=== PATIENT | female | born 1965 | race Caucasian/White ===

== ENCOUNTER → 2016-09-16 | Outpatient (CLI) | payer BC ==
--- NOTE | 2016-09-16 12:36 | MR ---
EXAMINATION TYPE: MR lumbar spine wo con DATE OF EXAM: 09/16/2016 12:26 PM COMPARISON: NONE HISTORY: Back pain TECHNIQUE: Multiplanar, multisequence images of the lumbar spine were acquired. L1-L2: Normal disc appearance without desiccation. No herniation, protrusion or disc bulging. No ca nal stenosis is present. Foramina are patent bilaterally. L2-L3: Normal disc appearance without desiccation. No herniation, protrusion or disc bulging. No ca nal stenosis is present. Foramina are patent bilaterally. L3-L4: Normal disc appearance without desiccation. No herniation, protrusion or disc bulging. No ca nal stenosis is present. Foramina are patent bilaterally. L4-L5: There is mild disc desiccation noted. No significant disc bulge herniation or protrusion. Fora khai are patent bilaterally. L5-S1: There is mild disc desiccation. Posterior central disc bulge with small annular tear. No evide nce of paulie herniation. No evidence for central stenosis or foraminal encroachment. Lumbar segments are intact. No paraspinal masses are identified. Conus medullaris has a normal appe arance. IMPRESSION: Mild disc desiccation and disc bulging as discussed above.
== END | disposition home or self-care (01) ==
LOC: RADMRIMAIN 11:49
PROVIDERS: ATTEND Nurse Practitioner Acute Care
DX: M51.27 Other intervertebral disc displacement, lumbosacral region (principal)
CPT/HCPCS: 72148

== ENCOUNTER → 2017-08-02 | Outpatient (CLI) | payer BC ==
--- NOTE | 2017-08-04 07:54 | MM ---
Reason for exam: screening (asymptomatic). Last mammogram was performed 1 year and 2 months ago. History: Patient is postmenopausal and is nulliparous. Excisional biopsy of the left breast, October 15, 2007. Benign US left CoreBiopsy of the left breast, January 11, 2006. Benign excisional biopsy of the left breast, December 03, 1997. Benign core biopsy of the left breast, November 12, 1997. Benign stereotactic core biopsy of the left breast, November 12, 1997. Benign excisional biopsy of the right breast. Physical Findings: A clinical breast exam by your physician is recommended on an annual basis and results should be correlated with mammographic findings. MG Screening Mammo w CAD Bilateral CC and MLO view(s) were taken. Prior study comparison: May 20, 2016, bilateral MG screening mammo w CAD. April 04, 2014, bilateral MG screening mammo w CAD. September 09, 2011, bilateral digital screening mammo w/CAD. The breast tissue is heterogeneously dense. This may lower the sensitivity of mammography. There is a 1.2cm oval circumscribed isodense mass not clearly seen previously possible cyst. ASSESSMENT: Incomplete: need additional imaging evaluation, BI-RAD 0 RECOMMENDATION: Ultrasound of the right breast. (9-3 o'clock). [facility] will attempt to contact patient to return for ultrasound.
== END | disposition home or self-care (01) ==
LOC: RADMAMWWP 13:07
PROVIDERS: ATTEND Family Medicine
DX: Z12.31 Encounter for screening mammogram for malignant neoplasm of breast (principal)
CPT/HCPCS: 77067

== ENCOUNTER → 2017-10-06 | Outpatient (CLI) | payer BC ==
--- NOTE | 2017-10-09 07:37 | USB ---
Reason for exam: additional evaluation requested from abnormal screening. History: Patient is postmenopausal and is nulliparous. Excisional biopsy of the left breast, October 15, 2007. Benign US left CoreBiopsy of the left breast, January 11, 2006. Benign excisional biopsy of the left breast, December 03, 1997. Benign core biopsy of the left breast, November 12, 1997. Benign stereotactic core biopsy of the left breast, November 12, 1997. Benign excisional biopsy of the right breast. Physical Findings: Nurse did not find any significant physical abnormalities on exam. US Breast Workup Limited RT Right breast ultrasound demonstrates no cystic or solid lesion seen. These results were verbally communicated with the patient and result sheet given to the patient on 10/06/17. ASSESSMENT: Negative, BI-RAD 1 RECOMMENDATION: Return to routine screening mammogram schedule for both breasts.
== END | disposition home or self-care (01) ==
LOC: RADUSWWP 14:15
PROVIDERS: ATTEND Family Medicine
DX: R92.8 Other abnormal and inconclusive findings on diagnostic imaging of breast (principal)

== ENCOUNTER → 2018-08-24 | Outpatient (CLI) | payer OTHER ==
--- NOTE | 2018-08-27 09:54 | MM ---
Reason for exam: screening (asymptomatic). Last mammogram was performed 1 year and 1 month ago. History: Patient is postmenopausal and is nulliparous. Excisional biopsy of the left breast, October 15, 2007. Benign US left CoreBiopsy of the left breast, January 11, 2006. Benign excisional biopsy of the left breast, December 03, 1997. Benign core biopsy of the left breast, November 12, 1997. Benign stereotactic core biopsy of the left breast, November 12, 1997. Benign excisional biopsy of the right breast. Physical Findings: A clinical breast exam by your physician is recommended on an annual basis and results should be correlated with mammographic findings. MG Screening Mammo w CAD Bilateral CC and MLO view(s) were taken. Prior study comparison: August 02, 2017, bilateral MG screening mammo w CAD. May 20, 2016, bilateral MG screening mammo w CAD. There are scattered fibroglandular densities. There is no discrete abnormality. No significant changes when compared with prior studies. ASSESSMENT: Negative, BI-RAD 1 RECOMMENDATION: Routine screening mammogram of both breasts in 1 year.
== END | disposition home or self-care (01) ==
LOC: RADMAMWWP 08:09
PROVIDERS: ATTEND Family Medicine
DX: Z12.31 Encounter for screening mammogram for malignant neoplasm of breast (principal)
CPT/HCPCS: 77067

== ENCOUNTER → 2019-09-03 | Outpatient (CLI) | payer OTHER ==
--- NOTE | 2019-09-04 14:53 | MM ---
Reason for exam: screening (asymptomatic). Last mammogram was performed 1 year ago. History: Patient is postmenopausal and is nulliparous. Excisional biopsy of the left breast, October 15, 2007. Benign US left CoreBiopsy of the left breast, January 11, 2006. Benign excisional biopsy of the left breast, December 03, 1997. Benign core biopsy of the left breast, November 12, 1997. Benign stereotactic core biopsy of the left breast, November 12, 1997. Benign excisional biopsy of the right breast. Took hormonal contraceptives for 25 years. Physical Findings: A clinical breast exam by your physician is recommended on an annual basis and results should be correlated with mammographic findings. MG Screening Mammo w CAD Bilateral CC and MLO view(s) were taken. Prior study comparison: August 24, 2018, bilateral MG screening mammo w CAD. August 02, 2017, bilateral MG screening mammo w CAD. Developing asymmetry right breast. This finding is changed when compared with previous exams. ASSESSMENT: Incomplete: need additional imaging evaluation, BI-RAD 0 RECOMMENDATION: Special view mammogram of the right breast. If lesion persists on supplemental views, image directed ultrasound is recommended. [facility] will attempt to contact patient to return for supplemental views and ultrasound if indicated.
== END | disposition home or self-care (01) ==
LOC: RADMAMWWP 13:12
PROVIDERS: ATTEND Family Medicine
DX: Z12.31 Encounter for screening mammogram for malignant neoplasm of breast (principal)
CPT/HCPCS: 77067

== ENCOUNTER → 2019-09-18 | Outpatient (CLI) | payer OTHER ==
--- NOTE | 2019-09-19 08:20 | MM ---
Reason for exam: additional evaluation requested from abnormal screening. Last mammogram was performed less than 1 month ago. History: Patient is postmenopausal and is nulliparous. Excisional biopsy of the left breast, October 15, 2007. Benign US left CoreBiopsy of the left breast, January 11, 2006. Benign excisional biopsy of the left breast, December 03, 1997. Benign core biopsy of the left breast, November 12, 1997. Benign stereotactic core biopsy of the left breast, November 12, 1997. Benign excisional biopsy of the right breast. Took hormonal contraceptives for 5 years. Physical Findings: Nurse did not find any significant physical abnormalities on exam. MG Work Up Mamm w CAD RT Spot compression CC, spot compression MLO, and ML view(s) were taken of the right breast. Prior study comparison: September 03, 2019, bilateral MG screening mammo w CAD. August 24, 2018, bilateral MG screening mammo w CAD. The breast tissue is heterogeneously dense. This may lower the sensitivity of mammography. Right focal asymmetry 4.5-5cm from nipple persists. Ultrasound will be done. These results were verbally communicated with the patient and result sheet given to the patient on 09/18/19. ASSESSMENT: Incomplete: need additional imaging evaluation, BI-RAD 0 RECOMMENDATION: Ultrasound of the right breast. (upper outer quadrant)
--- NOTE | 2019-09-19 08:22 | USB ---
Reason for exam: additional evaluation requested from abnormal screening. History: Patient is postmenopausal and is nulliparous. Excisional biopsy of the left breast, October 15, 2007. Benign US left CoreBiopsy of the left breast, January 11, 2006. Benign excisional biopsy of the left breast, December 03, 1997. Benign core biopsy of the left breast, November 12, 1997. Benign stereotactic core biopsy of the left breast, November 12, 1997. Benign excisional biopsy of the right breast. Took hormonal contraceptives for 5 years. US Breast Workup Limited RT Right limited breast ultrasound including focal area of concern, retroareolar and axilla demonstrates no cystic or solid lesion seen. No suspicious sonographic correlate. These results were verbally communicated with the patient and result sheet given to the patient on 09/18/19. ASSESSMENT: Probably benign, BI-RAD 3 RECOMMENDATION: Follow-up diagnostic mammogram of the right breast in 6 months.
== END | disposition home or self-care (01) ==
LOC: RADMAMWWP 14:07
PROVIDERS: ATTEND Family Medicine
DX: R92.8 Other abnormal and inconclusive findings on diagnostic imaging of breast (principal)
CPT/HCPCS: 77065

== ENCOUNTER → 2020-04-03 | Outpatient (CLI) | payer OTHER ==
--- NOTE | 2020-04-03 10:54 | MM ---
Reason for exam: follow-up at short interval from prior study. Last mammogram was performed 6 months ago. History: Patient is postmenopausal and is nulliparous. Excisional biopsy of the left breast, October 15, 2007. Benign US left CoreBiopsy of the left breast, January 11, 2006. Benign excisional biopsy of the left breast, December 03, 1997. Benign core biopsy of the left breast, November 12, 1997. Benign stereotactic core biopsy of the left breast, November 12, 1997. Benign excisional biopsy of the right breast. Took hormonal contraceptives for 5 years. Physical Findings: Nurse did not find any significant physical abnormalities on exam. MG Diagnostic Mammo RT w CAD CC and MLO view(s) were taken of the right breast. Prior study comparison: September 18, 2019, right breast MG work up mamm w CAD RT. September 03, 2019, bilateral MG screening mammo w CAD. The breast tissue is heterogeneously dense. This may lower the sensitivity of mammography. No persistent density. These results were verbally communicated with the patient and result sheet given to the patient on 04/03/20. ASSESSMENT: Benign, BI-RAD 2 RECOMMENDATION: Return to routine screening mammogram schedule for both breasts. Back on schedule.
== END | disposition home or self-care (01) ==
LOC: RADMAMWWP 10:04
PROVIDERS: ATTEND Family Medicine
DX: R92.8 Other abnormal and inconclusive findings on diagnostic imaging of breast (principal)
CPT/HCPCS: 77065

== ENCOUNTER → 2020-10-16 | Outpatient (CLI) | payer OTHER ==
--- NOTE | 2020-10-19 10:46 | MM ---
Reason for exam: screening (asymptomatic). Last mammogram was performed 6 months ago. History: Patient is postmenopausal and is nulliparous. Excisional biopsy of the left breast, October 15, 2007. Benign US left CoreBiopsy of the left breast, January 11, 2006. Benign excisional biopsy of the left breast, December 03, 1997. Benign core biopsy of the left breast, November 12, 1997. Benign stereotactic core biopsy of the left breast, November 12, 1997. Benign excisional biopsy of the right breast. Took hormonal contraceptives for 5 years. Physical Findings: A clinical breast exam by your physician is recommended on an annual basis and results should be correlated with mammographic findings. MG 3D Screening Mammo W/Cad Bilateral CC and MLO view(s) were taken. Prior study comparison: April 03, 2020, right breast MG diagnostic mammo RT w CAD. September 18, 2019, right breast MG work up mamm w CAD RT. The breast tissue is heterogeneously dense. This may lower the sensitivity of mammography. There is no discrete abnormality. No significant changes when compared with prior studies. ASSESSMENT: Negative, BI-RAD 1 RECOMMENDATION: Routine screening mammogram of both breasts in 1 year.
== END | disposition home or self-care (01) ==
LOC: RADMAMWWP 11:23
PROVIDERS: ATTEND Family Medicine
DX: Z12.31 Encounter for screening mammogram for malignant neoplasm of breast (principal); Z78.0 Asymptomatic menopausal state
CPT/HCPCS: 77063; 77067

== ENCOUNTER 2020-11-19 13:12 | Observation (INO) | payer OTHER ==
--- NOTE | 2020-11-19 13:40 | ED ---
General Adult HPI - General Chief complaint: GI Bleed Stated complaint: Abn Labs Time Seen by Provider: 11/19/20 13:39 Source: patient, RN notes reviewed Mode of arrival: ambulatory Limitations: no limitations - History of Present Illness Initial comments: Patient is a pleasant 55-year-old female presenting to the emergency department with concerns for abnormal labs. Patient states she did have black stool around a month ago followed by a couple of episodes of bright red blood. Patient has not had any since that time. No abdominal pain. No vomiting. Patient did have recent blood work by her primary care physician with concerns with increased white blood cell count and decreased red blood cell count. No fevers. Patient states there is some mild fatigue. - Related Data Home Medications Medication Instructions Recorded Confirmed Atenolol [Tenormin] 50 mg PO DAILY 11/19/20 11/19/20 Atorvastatin [Lipitor] 10 mg PO HS 11/19/20 11/19/20 Brimonidine Tartrate [Lumify] 1 drop RIGHT EYE DAILY 11/19/20 11/19/20 Carboxymethylcellulose Sodium 1 drop RIGHT EYE DAILY PRN 11/19/20 11/19/20 [Refresh Tears] Cetirizine HCl [Zyrtec] 10 mg PO DAILY 11/19/20 11/19/20 Cyclobenzaprine [Flexeril] 10 mg PO DAILY PRN 11/19/20 11/19/20 DULoxetine HCL [Cymbalta] 60 mg PO DAILY 11/19/20 11/19/20 HYDROcodone/APAP 5-325MG [[place] 1 tab PO DAILY 11/19/20 11/19/20 5-325] Losartan Potassium 100 mg PO DAILY 11/19/20 11/19/20 Meloxicam [Mobic] 15 mg PO DAILY 11/19/20 11/19/20 Prednisolone Acetate/Pf 1 drop RIGHT EYE DAILY 11/19/20 11/19/20 [Prednisolone Acet 1% Eye Drop] Sodium Chloride 5% Ophth Oint 1 applic RIGHT EYE DAILY 11/19/20 11/19/20 [Zen 128] amLODIPine [Norvasc] 5 mg PO DAILY 11/19/20 11/19/20 cycloSPORINE [Restasis] 1 drop RIGHT EYE HS 11/19/20 11/19/20 Allergies Allergy/AdvReac Type Severity Reaction Status Date / Time Penicillins Allergy Rash/Hives Verified 11/19/20 14:26 Sulfa (Sulfonamide Allergy Unknown Verified 11/19/20 14:26 Antibiotics) Childhood Review of Systems ROS Statement: Those systems with pertinent positive or pertinent negative responses have been documented in the HPI. ROS Other: All systems not noted in ROS Statement are negative. Constitutional: Denies: fever Eyes: Denies: eye pain ENT: Denies: ear pain Respiratory: Denies: cough Cardiovascular: Denies: chest pain Endocrine: Reports: fatigue Gastrointestinal: Reports: as per HPI. Denies: abdominal pain, vomiting Genitourinary: Denies: dysuria Musculoskeletal: Denies: back pain Skin: Denies: lesions Neurological: Denies: weakness Past Medical History Past Medical History: Hyperlipidemia, Hypertension Additional Past Medical History / Comment(s): chronic back pain, glaucoma History of Any Multi-Drug Resistant Organisms: None Reported Past Surgical History: Hysterectomy Additional Past Surgical History / Comment(s): eye stent Past Psychological History: No Psychological Hx Reported Smoking Status: Current every day smoker Past Alcohol Use History: Occasional Past Drug Use History: None Reported General Exam Limitations: no limitations General appearance: alert, in no apparent distress Head exam: Present: normocephalic Eye exam: Present: normal appearance Neck exam: Present: normal inspection Respiratory exam: Present: normal lung sounds bilaterally Cardiovascular Exam: Present: regular rate, normal rhythm GI/Abdominal exam: Present: soft. Absent: distended, tenderness Rectal exam: Present: normal inspection. Absent: bloody stool Extremities exam: Present: normal inspection Neurological exam: Present: alert Psychiatric exam: Present: normal affect, normal mood Skin exam: Present: normal color Course Vital Signs 11/19/20 11/19/20 13:21 14:02 Temperature 98.2 F Pulse Rate 98 69 Respiratory 18 20 Rate Blood Pressure 145/87 115/70 O2 Sat by Pulse 100 99 Oximetry EKG Findings - EKG Comments: EKG Findings:: Normal sinus rhythm with rate of 96. RI 138. QRS 92. QT 340. QTc 429. Normal axis. Incomplete right bundle-branch block. No acute ST change. Medical Decision Making - Medical Decision Making Patient reevaluated and updated. Case was discussed with Dr. Chiu, covering for Dr. Fritz Pope, who will admit. CT of chest and abdomen will be obtained. - Lab Data Result diagrams: 11/19/20 13:55 11/19/20 13:55 Lab Results 11/19/20 11/19/20 11/19/20 Range/Units 13:55 13:55 13:55 WBC 19.5 H (3.8-10.6) k/uL RBC 2.97 L (3.80-5.40) m/uL Hgb 9.1 L (11.4-16.0) gm/dL Hct 28.1 L (34.0-46.0) % MCV 94.4 D (80.0-100.0) fL MCH 30.7 (25.0-35.0) pg MCHC 32.6 (31.0-37.0) g/dL RDW 14.5 (11.5-15.5) % Plt Count 932 H (150-450) k/uL MPV 6.5 Neutrophils % 78 % Lymphocytes % 9 % Monocytes % 9 % Eosinophils % 1 % Basophils % 0 % Neutrophils # 15.3 H (1.3-7.7) k/uL Lymphocytes # 1.8 (1.0-4.8) k/uL Monocytes # 1.8 H (0-1.0) k/uL Eosinophils # 0.3 (0-0.7) k/uL Basophils # 0.1 (0-0.2) k/uL PT 9.6 (9.0-12.0) sec INR 0.9 (<1.2) APTT 24.8 (22.0-30.0) sec Sodium 133 L (137-145) mmol/L Potassium 4.3 (3.5-5.1) mmol/L Chloride 96 L (98-107) mmol/L Carbon Dioxide 27 (22-30) mmol/L Anion Gap 10 mmol/L BUN 11 (7-17) mg/dL Creatinine 0.66 (0.52-1.04) mg/dL Est GFR (CKD-EPI)AfAm >90 (>60 ml/min/1.73 sqM) Est GFR (CKD-EPI)NonAf >90 (>60 ml/min/1.73 sqM) Glucose 102 H (74-99) mg/dL Calcium 9.6 (8.4-10.2) mg/dL Total Bilirubin 0.2 (0.2-1.3) mg/dL AST 22 (14-36) U/L ALT 14 (4-34) U/L Alkaline Phosphatase 108 (38-126) U/L Troponin I (0.000-0.034) ng/mL Total Protein 7.0 (6.3-8.2) g/dL Albumin 3.8 (3.5-5.0) g/dL Stool Occult Blood (Negative) 11/19/20 11/19/20 Range/Units 13:55 14:00 WBC (3.8-10.6) k/uL RBC (3.80-5.40) m/uL Hgb (11.4-16.0) gm/dL Hct (34.0-46.0) % MCV (80.0-100.0) fL MCH (25.0-35.0) pg MCHC (31.0-37.0) g/dL RDW (11.5-15.5) % Plt Count (150-450) k/uL MPV Neutrophils % % Lymphocytes % % Monocytes % % Eosinophils % % Basophils % % Neutrophils # (1.3-7.7) k/uL Lymphocytes # (1.0-4.8) k/uL Monocytes # (0-1.0) k/uL Eosinophils # (0-0.7) k/uL Basophils # (0-0.2) k/uL PT (9.0-12.0) sec INR (<1.2) APTT (22.0-30.0) sec Sodium (137-145) mmol/L Potassium (3.5-5.1) mmol/L Chloride (98-107) mmol/L Carbon Dioxide (22-30) mmol/L Anion Gap mmol/L BUN (7-17) mg/dL Creatinine (0.52-1.04) mg/dL Est GFR (CKD-EPI)AfAm (>60 ml/min/1.73 sqM) Est GFR (CKD-EPI)NonAf (>60 ml/min/1.73 sqM) Glucose (74-99) mg/dL Calcium (8.4-10.2) mg/dL Total Bilirubin (0.2-1.3) mg/dL AST (14-36) U/L ALT (4-34) U/L Alkaline Phosphatase (38-126) U/L Troponin I <0.012 (0.000-0.034) ng/mL Total Protein (6.3-8.2) g/dL Albumin (3.5-5.0) g/dL Stool Occult Blood Positive H (Negative) - Radiology Data Radiology results: image reviewed (Suprahilar masslike opacity on the left. Possible alveolar hemorrhage or infiltrate.) Disposition Clinical Impression: Lower gastrointestinal hemorrhage Disposition: ADMITTED IP TO THIS HOSP Is patient prescribed a controlled substance at d/c from ED?: No Referrals: Julius Pandey DO [Primary Care Provider] - 1-2 days Decision Time: 15:09
[2020-11-19] MEDS ORDERED: PANTOPRAZOLE 40 MG/10 ML VIAL IVP STA (13:50)
[2020-11-19 14:05] LABS: Basophils # (A) 0.1 k/uL (0-0.2); Basophils % (A) 0 %; Eosinophils # (A) 0.3 k/uL (0-0.7); Eosinophils % (A) 1 %; HCT 28.1 % (34.0-46.0); HGB 9.1 gm/dL (11.4-16.0); Lymphocytes # (A) 1.8 k/uL (1.0-4.8); Lymphocytes % (A) 9 %; MCH 30.7 pg (25.0-35.0); MCHC 32.6 g/dL (31.0-37.0); Mean Platelet Volume 6.5; Monocytes # (A) 1.8 k/uL (0-1.0); Monocytes % (A) 9 %; Neutrophils # (A) 15.3 k/uL (1.3-7.7); Neutrophils % (A) 78 %; Platelet Count 932 k/uL (150-450); RBC 2.97 m/uL (3.80-5.40); RDW 14.5 % (11.5-15.5); WBC 19.5 k/uL (3.8-10.6)
[2020-11-19 14:15] LABS: MCV 94.4 fL (80.0-100.0)
--- NOTE | 2020-11-19 14:23 | XR ---
EXAMINATION TYPE: XR chest 1V portable DATE OF EXAM: 11/19/2020 COMPARISON: Chest x-ray December 08, 2009 HISTORY: Leukocytosis. Blood loss. TECHNIQUE: Single AP portable frontal upright view of the chest is obtained. FINDINGS: There is mass like opacity left suprahilar level on background chronic parenchymal change. Right lung is clear. The cardiac silhouette size remains within normal limits. The osseous struct ures are intact. IMPRESSION: New suprahilar masslike opacity suspicious for focal infiltrate and/or less likely alveo lar hemorrhage given patient's history. Progress study advised to rule out underlying nodule.
[2020-11-19 14:24] LABS: INR 0.9 (<1.2); Partial Thromboplastin Time 24.8 sec (22.0-30.0); Prothrombin Time 9.6 sec (9.0-12.0)
[2020-11-19 14:51] LABS: ALT 14 U/L (4-34); AST 22 U/L (14-36); African American GFR (CKD) >90 (>60 ml/min/1.73 sqM); Albumin 3.8 g/dL (3.5-5.0); Alkaline Phosphatase 108 U/L (38-126); Anion Gap 10 mmol/L; Blood Urea Nitrogen 11 mg/dL (7-17); Calcium 9.6 mg/dL (8.4-10.2); Carbon Dioxide 27 mmol/L (22-30); Chloride 96 mmol/L (98-107); Glucose 102 mg/dL (74-99); Non-African American GFR(CKD) >90 (>60 ml/min/1.73 sqM); Potassium 4.3 mmol/L (3.5-5.1); Sodium 133 mmol/L (137-145); Total Bilirubin 0.2 mg/dL (0.2-1.3)
[2020-11-19] MEDS ORDERED: NALOXONE 0.4 MG/ML 1 ML VIAL IV PRN (15:10)
[2020-11-19] MEDS ORDERED: IOPAMIDOL CONTRAST (ORAL USE) VIAL PO PRN (15:10)
[2020-11-19] MEDS ORDERED: SODIUM CHLORIDE 0.9% 1,000 ML IV SCH (15:15)
--- NOTE | 2020-11-19 19:02 | CT ---
EXAMINATION TYPE: CT ChestAbdPelvis w con DATE OF EXAM: 11/19/2020 COMPARISON: None HISTORY: Abdominal pain with blood in stool. CT DLP: 860.3 mGycm Automated exposure control for dose reduction was used. CONTRAST: Performed with IV Contrast, patient injected with 100 mL of Isovue 300. Images obtained from the thoracic inlet to the floor the pelvis with IV contrast. There is 6 x 4 cm area of masslike consolidation in the anterior left upper lobe. There is central lo w attenuation with air bubble. This could be necrotic tumor or lung abscess. The other lung urban ar e clear. Heart size is normal. There is no mediastinal adenopathy. There are no hilar masses. Thoraci c aorta is intact. There is no aneurysm or dissection. Liver spleen stomach pancreas gallbladder appear intact. The bile ducts are not dilated. There are sm all calcified gallstones. There is no adrenal mass. Kidneys show satisfactory contrast opacification. There is no hydronephrosi s. Delayed images show normal renal excretion. There is no retroperitoneal adenopathy. Bladder disten ds smoothly. There is no inguinal hernia. There is no free fluid in the pelvis. There are some sigmoi d diverticula. There is no diverticulitis. There is normal contrast opacification of the small bowel with oral contrast. There is no mesenteric edema. There is no ascites or free air. There is no bowel obstruction. Appendix is not seen. There is no sign of thickened appendix. There are multiple sigmoid diverticula. There are scattered diverticula in the large bowel. I see no sign of diverticulitis. Thoracic and lumbar vertebra appear intact. There is no compression fracture. Sternum is intact. The bony pelvis is intact. Proximal femurs and hip joints are intact. There is no hip dysplasia. IMPRESSION: Masslike infiltrate in the anterior left upper lobe adjacent to the chest wall. I would consider poss ibilities of lung abscess and necrotic tumor. Follow-up recommended. There is some colonic diverticulosis without diverticulitis. Cholelithiasis.
[2020-11-19] MEDS: cycloSPORINE 0.05% OPHTH 0.4 ML DROPERETTE RIGHT EYE SCH (20:32)
[2020-11-19] MEDS: NICOTINE 21MG/24HR PATCH TRANSDERM SCH (20:51)
[2020-11-19] MEDS: ATORVASTATIN 10 MG TAB PO SCH (20:51)
[2020-11-19] MEDS ORDERED: ACETAMINOPHEN TAB 325 MG TAB PO PRN (22:40)
[2020-11-19] MEDS: SODIUM CHLORIDE 0.9% 1,000 ML IV SCH (22:57)
[2020-11-19 23:25] LABS: Appearance,Urine Cloudy (Clear); Bacteria,Urine Rare /hpf; Bilirubin,Urine Negative (Negative); Blood,Urine Negative (Negative); Color,Urine Colorless; Glucose,Urine (UA) Negative (Negative); Hyaline Casts,Urine 1 /lpf (0-2); Ketones,Urine Negative (Negative); Leukocyte Esterase,Urine Large (Negative); Nitrite,Urine Negative (Negative); PH, Urine 7.5 (5.0-8.0); Protein,Urine Negative (Negative); RBC,Urine 2 /hpf (0-5); Specific Gravity,Urine 1.011 (1.001-1.035); Squamous Epithelial Cell,Urine 1 /hpf (0-4); Urobilinogen,Urine <2.0 mg/dL (<2.0); WBC,Urine 139 /hpf (0-5)
[2020-11-19] MEDS: LEVOFLOXACIN 750MG-D5W PMX 750 MG in DEXTROSE/WATER 1 150ML.BAG IVPB SCH (23:30)
--- NOTE | 2020-11-19 23:37 | P.HPIM ---
History of Present Illness H&P Date: 11/19/20 Chief Complaint: Abnormal lab value Patient is a 55-year-old female with a known history of hypertension, hyperlipidemia, chronic back pain, glaucoma and currently everyday smoker and alcohol use 1-2 beers on daily basis was sent to ER from Dr. Zafar office due to concern for GI bleed and elevated WBC count. Patient states that she did have dark-colored stool about a month ago followed by episodes of bright red blood per rectum. Patient does have history of hemorrhoids and had colonoscopy several years ago. Denies any dark-colored stool, hematemesis during the last few days. Otherwise patient does drink on a daily basis. Patient was sent to ER for evaluation. Denies any dysuria or hematuria. Laboratory data showed WBC 19.5 hemoglobin 9.1 and platelets 932 T-max was 100.3. Currently oxygenating at 99% on room air. Neutrophils 15.3 and monocytes 1.8 Liver enzymes are not elevated Sodium 133 potassium 4.3 chloride 96 and FOBT positive. Coronavirus PCR not detected Chest x-ray showed new suprahilar masslike opacity suspicious for focal infiltrate and less likely alveolar hemorrhage given patient's history. Progressive study advised rule out underlying nodule. EKG showed normal sinus rhythm CT of the abdomen pelvis and chest was done showed masslike infiltrate in the anterior left upper lobe adjacent to the chest wall. I would consider possibili ties of lung abscess and necrotic tumor. Follow-up recommended. There is some colonic diverticulosis without diverticulitis. Cholelithiasis. Review of Systems Constitutional: Patient does have fever, no chills . No generalized weakness or weight loss. Abdomen: Patient denied nausea vomiting and diarrhea and abdominal pain. dark colored stools. Cardiovascular: Patient denies any chest pain or short of breath no palpitations. Respiratory: patient denied any cough or sputum production. No shortness of breath Neurologic: Patient denied any numbness or tingling headache. Musculoskeletal: Patient denies any complaints of joint swelling or deformity. Skin: Negative Psychiatric: Negative Endocrine: No heat or cold intolerance. No recent weight gain. Genitourinary: No dysuria or hematuria. All other 14 point ROS negative except the above Past Medical History Past Medical History: Hyperlipidemia, Hypertension Additional Past Medical History / Comment(s): chronic back pain, glaucoma History of Any Multi-Drug Resistant Organisms: None Reported Past Surgical History: Hysterectomy Additional Past Surgical History / Comment(s): eye stent Past Psychological History: No Psychological Hx Reported Smoking Status: Current every day smoker Past Alcohol Use History: Occasional Past Drug Use History: None Reported Medications and Allergies Home Medications Medication Instructions Recorded Confirmed Type Atenolol [Tenormin] 50 mg PO DAILY 11/19/20 11/19/20 History Atorvastatin [Lipitor] 10 mg PO HS 11/19/20 11/19/20 History Brimonidine Tartrate [Lumify] 1 drop RIGHT EYE DAILY 11/19/20 11/19/20 History Carboxymethylcellulose Sodium 1 drop RIGHT EYE DAILY PRN 11/19/20 11/19/20 History [Refresh Tears] Cetirizine HCl [Zyrtec] 10 mg PO DAILY 11/19/20 11/19/20 History Cyclobenzaprine [Flexeril] 10 mg PO DAILY PRN 11/19/20 11/19/20 History DULoxetine HCL [Cymbalta] 60 mg PO DAILY 11/19/20 11/19/20 History HYDROcodone/APAP 5-325MG [[place] 1 tab PO DAILY 11/19/20 11/19/20 History 5-325] Losartan Potassium 100 mg PO DAILY 11/19/20 11/19/20 History Meloxicam [Mobic] 15 mg PO DAILY 11/19/20 11/19/20 History Prednisolone Acetate/Pf 1 drop RIGHT EYE DAILY 11/19/20 11/19/20 History [Prednisolone Acet 1% Eye Drop] Sodium Chloride 5% Ophth Oint 1 applic RIGHT EYE DAILY 11/19/20 11/19/20 History [Zen 128] amLODIPine [Norvasc] 5 mg PO DAILY 11/19/20 11/19/20 History cycloSPORINE [Restasis] 1 drop RIGHT EYE HS 11/19/20 11/19/20 History Allergies Allergy/AdvReac Type Severity Reaction Status Date / Time Penicillins Allergy Rash/Hives Verified 11/19/20 14:26 Sulfa (Sulfonamide Allergy Unknown Verified 11/19/20 14:26 Antibiotics) Childhood Physical Exam Vitals: Vital Signs Temp Pulse Pulse Resp BP BP Pulse Ox 11/19/20 20:35 100.0 F H 90 148/84 97 11/19/20 18:15 100.3 F H 92 16 129/78 100 11/19/20 17:34 98 F 75 18 124/80 96 11/19/20 15:00 79 18 121/65 99 11/19/20 14:02 69 20 115/70 99 11/19/20 13:21 98.2 F 98 18 145/87 100 Intake and Output 11/19/20 11/19/20 11/19/20 06:59 14:59 22:59 Intake Total 200 Balance 200 Intake: Oral 200 Other: # Voids 2 Weight 65.771 kg 65.771 kg PHYSICAL EXAMINATION: Patient is lying in the bed comfortably, no acute distress, awake alert and oriented.. HEENT: Normocephalic. Neck is supple. Pupils reactive. Nostrils clear. Oral cavity is moist. Ears reveal no drainage. Neck reveals no JVD, carotid bruits, or thyromegaly. CHEST EXAMINATION: Trachea is central. Symmetrical expansion. Lung urban clear to auscultation and percussion. CARDIAC: Normal S1, S2 with no gallops. No murmurs ABDOMEN: Soft. Bowel sounds normal. No organomegaly. No abdominal bruits. Extremities: reveal no edema. No clubbing or cyanosis Neurologically awake, alert, oriented x3 with well-coordinated movements. No focal deficits noted Skin: No rash or skin lesions. Psychiatric: Coperative. Nonsuicidal Musculoskeletal: No joint swelling or deformity. Normal range of motion. Results CBC & Chem 7: 11/19/20 13:55 11/19/20 13:55 Labs: Abnormal Lab Results - Last 24 Hours (Table) 11/19/20 11/19/20 11/19/20 Range/Units 13:55 13:55 14:00 WBC 19.5 H (3.8-10.6) k/uL RBC 2.97 L (3.80-5.40) m/uL Hgb 9.1 L (11.4-16.0) gm/dL Hct 28.1 L (34.0-46.0) % Plt Count 932 H (150-450) k/uL Neutrophils # 15.3 H (1.3-7.7) k/uL Monocytes # 1.8 H (0-1.0) k/uL Sodium 133 L (137-145) mmol/L Chloride 96 L (98-107) mmol/L Glucose 102 H (74-99) mg/dL Stool Occult Blood Positive H (Negative) Thrombosis Risk Factor Assmnt - DVT/VTE Prophylaxis DVT/VTE Prophylaxis: Pharmacologic Prophylaxis ordered - Choose All That Apply Any of the Below Risk Factors Present?: Yes Each Factor Represents 1 point: Age 41-60 years Other Risk Factors: No Thrombosis Risk Factor Assessment Total Risk Factor Score: 1 Thrombosis Risk Factor Assessment Level: Low Risk Assessment and Plan Assessment: Left upper lobe masslike infiltrate with possible lung abscess versus necrotic tumor. Sepsis secondary to above Acute blood loss anemia. Likely due to GI bleed with dark stools. History of hemorrhoids Daily alcohol use 1-2 beers. Ongoing nicotine addiction Hypertension Hyperlipidemia DVT prophylaxis with SCDs due to GI bleed. Plan: Patient will be continued on IV hydration with normal saline at 100 cc per hour. Monitor H&H. Continue with PPI. Patient will be started on antibiotics in the form of Levaquin and Flagyl. Patient is allergic to penicillins. Follow-up blood cultures and Tylenol as needed for fever. Pulmonary, ID and GI was consulted. Clear liquid diet and follow-up closely. Further recommendations based on clinical course. Smoking cessation and alcohol abstinence has been counseled extensively. Monitor for alcohol withdrawal symptoms. Time with Patient: Greater than 30
[2020-11-20] MEDS: metroNIDAZOLE-NS PMX 500 MG in SALINE 1 100ML.BAG IVPB SCH ×4 (01:21→23:15)
[2020-11-20] MEDS: PANTOPRAZOLE 40 MG/10 ML VIAL IV SCH (08:09)
[2020-11-20] MEDS: NICOTINE 21MG/24HR PATCH TRANSDERM SCH (08:10)
[2020-11-20] MEDS: THIAMINE 100 MG TAB PO SCH (08:10)
[2020-11-20 10:15] LABS: Basophils # (A) 0.09 X 10*3/uL (0.00-0.10); Basophils % (A) 0.5 %; Eosinophils # (A) 0.18 X 10*3/uL (0.04-0.35); Eosinophils % (A) 0.9 %; HCT 27.8 % (37.2-46.3); HGB 8.8 g/dL (12.0-15.0); Lymphocytes # (A) 1.56 X 10*3/uL (0.90-5.00); Lymphocytes % (A) 7.9 %; MCH 30.8 pg (27.0-32.0); MCHC 31.7 g/dL (32.0-37.0); MCV 97.2 fL (80.0-97.0); Mean Platelet Volume 8.3 fL (9.5-12.2); Monocytes # (A) 2.43 X 10*3/uL (0.20-1.00); Monocytes % (A) 12.2 %; Neutrophils # (A) 15.46 X 10*3/uL (1.80-7.70); Neutrophils % (A) 77.9 %; Platelet Count 831 X 10*3/uL (140-440); RBC 2.86 X 10*6/uL (4.10-5.20); RDW 14.6 % (11.5-14.5); WBC 19.84 X 10*3/uL (4.50-10.00)
[2020-11-20] MEDS ORDERED: CYCLOBENZAPRINE 10 MG TAB PO PRN (10:24)
[2020-11-20 10:30] LABS: African American GFR (CKD) 126.3 (60.0-200.0); Anion Gap 9.8 mmol/L (4.00-12.00); Calcium 8.9 mg/dL (8.7-10.3); Carbon Dioxide 23.2 mmol/L (21.6-31.8); Potassium 4.7 mmol/L (3.5-5.5)
[2020-11-20] MEDS: amLODIPine 5 MG TAB PO SCH (10:43)
[2020-11-20] MEDS: atenoloL 50 MG TAB PO SCH (10:43)
[2020-11-20] MEDS: DULoxetine HCL 60 MG CAPSULE.DR PO SCH (10:43)
[2020-11-20] MEDS: LORATADINE 10 MG TAB PO SCH (10:43)
[2020-11-20] MEDS: ARTIFICIAL TEARS-HYPROMELLOSE DROPS 15 ML BTL RIGHT EYE PRN (10:44)
[2020-11-20] MEDS: BRIMONIDINE TARTRATE 0.2% DROPS 5 ML BTL RIGHT EYE SCH (10:45)
[2020-11-20] MEDS: prednisoLONE ACETATE 1% OPHTH DROPS 5 ML BTL RIGHT EYE SCH (10:45)
[2020-11-20] MEDS: SODIUM CHLORIDE 5% OPHTH OINT 3.5 GM TUBE RIGHT EYE SCH (10:46)
--- NOTE | 2020-11-20 11:40 | P.CONS ---
History of Present Illness - Reason for Consult Consult date: 11/20/20 Lower GI bleed Requesting physician: Thor Chiu - Chief Complaint Anemia, abnormal labs - History of Present Illness This is a pleasant 55-year-old white female who was told by her primary care provider to come to the emergency room for further evaluation of anemia, with a positive fecal occult blood test. She has a past medical history including hyperlipidemia, hypertension, musculoskeletal pain, and smoker for over 25 years. The patient states she was recently diagnosed with anemia approximately one month ago while having blood work done at her primary care provider. She states she had a couple bowel movements mixed with dark blood, and then followed by a couple weeks later with bright red blood per rectum and mixed in stool. Patient states she does have a history of external hemorrhoids for which she had a hemorrhoidectomy in the . She denies any history of peptic ulcer disease or gastric reflux disease. She does take Mobic daily for chronic pain related to neck and back pain. Last month her hemoglobin was as low as 7.8. She states that she had recent outpatient anemia workup. Denies any abdominal pain, nausea, or vomiting. Denies any difficulty with swallowing. Today's labs WBC 19.84, hemoglobin 8.8, hematocrit 27.8, platelets 831,000, INR 0.9, positive fecal occult blood. As part of her workup she had a chest x-ray which showed new suprahilar masslike opacity suspicious for focal infiltrate and or less likely alveolar hemorrhage given patient's history. Progress study advised to rule out underlying nodule. CT of chest/abdomen/pelvis impression states masslike infiltrate in the anterior left upper lobe adjacent to the chest wall. I would consider possibilities of lung abscess and necrotic tumor. Follow-up recommended. There is some colonic diverticulosis without diverticulitis. Cholelithiasis. Review of Systems REVIEW OF SYSTEMS: CARDIOPULMONARY: No chest pain or shortness of breath. Gastrointestinal: No abdominal pain. No nausea or vomiting. No hematemesis, coffee-ground emesis. No rectal bleeding, or melena. Denies constipation. GENITOURINARY: No dysuria or hematuria. MUSCULOSKELETAL: Reports normal range of motion. Reports positive neck and back pain SKIN: No rashes. No jaundice. ENDOCRINE: Unremarkable. PSYCHIATRIC: Unremarkable. NEUROLOGY: No change in mental status. Denies dizziness, headache. ENT: Vision unremarkable. CONSTITUTIONAL: No recent weight loss. No fever, chills, night sweats. Past Medical History Past Medical History: Hyperlipidemia, Hypertension Additional Past Medical History / Comment(s): chronic back pain, glaucoma History of Any Multi-Drug Resistant Organisms: None Reported Past Surgical History: Hysterectomy Additional Past Surgical History / Comment(s): eye stent Past Psychological History: No Psychological Hx Reported Smoking Status: Current every day smoker Past Alcohol Use History: Occasional Past Drug Use History: None Reported Medications and Allergies Home Medications Medication Instructions Recorded Confirmed Type Atenolol [Tenormin] 50 mg PO DAILY 11/19/20 11/19/20 History Atorvastatin [Lipitor] 10 mg PO HS 11/19/20 11/19/20 History Brimonidine Tartrate [Lumify] 1 drop RIGHT EYE DAILY 11/19/20 11/19/20 History Carboxymethylcellulose Sodium 1 drop RIGHT EYE DAILY PRN 11/19/20 11/19/20 History [Refresh Tears] Cetirizine HCl [Zyrtec] 10 mg PO DAILY 11/19/20 11/19/20 History Cyclobenzaprine [Flexeril] 10 mg PO DAILY PRN 11/19/20 11/19/20 History DULoxetine HCL [Cymbalta] 60 mg PO DAILY 11/19/20 11/19/20 History HYDROcodone/APAP 5-325MG [[place] 1 tab PO DAILY 11/19/20 11/19/20 History 5-325] Losartan Potassium 100 mg PO DAILY 11/19/20 11/19/20 History Meloxicam [Mobic] 15 mg PO DAILY 11/19/20 11/19/20 History Prednisolone Acetate/Pf 1 drop RIGHT EYE DAILY 11/19/20 11/19/20 History [Prednisolone Acet 1% Eye Drop] Sodium Chloride 5% Ophth Oint 1 applic RIGHT EYE DAILY 11/19/20 11/19/20 History [Zen 128] amLODIPine [Norvasc] 5 mg PO DAILY 11/19/20 11/19/20 History cycloSPORINE [Restasis] 1 drop RIGHT EYE HS 11/19/20 11/19/20 History Allergies Allergy/AdvReac Type Severity Reaction Status Date / Time Penicillins Allergy Rash/Hives Verified 11/19/20 14:26 Sulfa (Sulfonamide Allergy Unknown Verified 11/19/20 14:26 Antibiotics) Childhood Physical Exam Vitals: Vital Signs Temp Pulse Pulse Resp BP BP Pulse Ox 11/20/20 07:00 98.7 F 106 H 16 120/78 96 11/20/20 01:25 99.3 F 100 16 124/78 96 11/19/20 22:33 90 16 11/19/20 20:35 100.0 F H 90 148/84 97 11/19/20 18:15 100.3 F H 92 16 129/78 100 11/19/20 17:34 98 F 75 18 124/80 96 11/19/20 15:00 79 18 121/65 99 11/19/20 14:02 69 20 115/70 99 11/19/20 13:21 98.2 F 98 18 145/87 100 Intake and Output 11/19/20 11/20/20 11/20/20 22:59 06:59 14:59 Intake Total 200 180 Balance 200 180 Intake: Oral 200 180 Other: Voiding Method Toilet Toilet Toilet # Voids 2 3 Weight 65.771 kg General appearance: The patient is alert, oriented, appears in no acute distress. HET: Head is normocephalic and atraumatic. Oropharynx is clear without lesions. Neck: Supple without lymphadenopathy. Trachea midline. Heart: S1 S2. Regular rate and rhythm. Lungs: Clear to auscultation. Abdomen: Soft, nontender, nondistended with bowel sounds. No guarding or rigidity. Extremities: Normal skin color and turgor. No pedal edema. Neurological: No focal deficits. Alert and oriented 3.. Results CBC & Chem 7: 11/20/20 04:50 11/20/20 04:50 Labs: Abnormal Lab Results - Last 24 Hours (Table) 11/19/20 11/19/20 11/19/20 Range/Units 13:55 13:55 14:00 WBC 19.5 H (3.8-10.6) k/uL RBC 2.97 L (3.80-5.40) m/uL Hgb 9.1 L (11.4-16.0) gm/dL Hct 28.1 L (34.0-46.0) % MCV (80.0-97.0) fL MCHC (32.0-37.0) g/dL RDW (11.5-14.5) % Plt Count 932 H (150-450) k/uL Plt Count Comment MPV (9.5-12.2) fL Immature Gran # (0.00-0.04) X 10*3/uL Neutrophils # 15.3 H (1.3-7.7) k/uL Monocytes # 1.8 H (0-1.0) k/uL Sodium 133 L (137-145) mmol/L Chloride 96 L (98-107) mmol/L BUN (9.0-27.0) mg/dL Creatinine (0.6-1.5) mg/dL Glucose 102 H (74-99) mg/dL Plasma Lactic Acid [place] (0.7-2.0) mmol/L Urine Appearance (Clear) Ur Leukocyte Esterase (Negative) Urine WBC (0-5) /hpf Urine Bacteria (None) /hpf Stool Occult Blood Positive H (Negative) 11/19/20 11/20/20 11/20/20 Range/Units 22:54 00:29 04:50 WBC 19.84 H (3.8-10.6) k/uL RBC 2.86 L (3.80-5.40) m/uL Hgb 8.8 L (11.4-16.0) gm/dL Hct 27.8 L (34.0-46.0) % MCV 97.2 H (80.0-97.0) fL MCHC 31.7 L (32.0-37.0) g/dL RDW 14.6 H (11.5-14.5) % Plt Count 831 H (150-450) k/uL Plt Count Comment INCREASED A MPV 8.3 L (9.5-12.2) fL Immature Gran # 0.12 H (0.00-0.04) X 10*3/uL Neutrophils # 15.46 H (1.3-7.7) k/uL Monocytes # 2.43 H (0-1.0) k/uL Sodium (137-145) mmol/L Chloride (98-107) mmol/L BUN (9.0-27.0) mg/dL Creatinine (0.6-1.5) mg/dL Glucose (74-99) mg/dL Plasma Lactic Acid [place] 0.6 L (0.7-2.0) mmol/L Urine Appearance Cloudy H (Clear) Ur Leukocyte Esterase Large H (Negative) Urine WBC 139 H (0-5) /hpf Urine Bacteria Rare H (None) /hpf Stool Occult Blood (Negative) 11/20/20 Range/Units 04:50 WBC (3.8-10.6) k/uL RBC (3.80-5.40) m/uL Hgb (11.4-16.0) gm/dL Hct (34.0-46.0) % MCV (80.0-97.0) fL MCHC (32.0-37.0) g/dL RDW (11.5-14.5) % Plt Count (150-450) k/uL Plt Count Comment MPV (9.5-12.2) fL Immature Gran # (0.00-0.04) X 10*3/uL Neutrophils # (1.3-7.7) k/uL Monocytes # (0-1.0) k/uL Sodium 134 L (137-145) mmol/L Chloride (98-107) mmol/L BUN 6.0 L (9.0-27.0) mg/dL Creatinine 0.5 L (0.6-1.5) mg/dL Glucose (74-99) mg/dL Plasma Lactic Acid [place] (0.7-2.0) mmol/L Urine Appearance (Clear) Ur Leukocyte Esterase (Negative) Urine WBC (0-5) /hpf Urine Bacteria (None) /hpf Stool Occult Blood (Negative) Microbiology - Last 24 Hours (Table) 11/19/20 22:54 Urine Culture - Preliminary Urine,Voided Comments: chest x-ray which showed new suprahilar masslike opacity suspicious for focal infiltrate and or less likely alveolar hemorrhage given patient's history. Progress study advised to rule out underlying nodule. CT of chest/abdomen/pelvis impression states masslike infiltrate in the anterior left upper lobe adjacent to the chest wall. I would consider possibilities of lung abscess and necrotic tumor. Follow-up recommended. There is some colonic diverticulosis without diverticulitis. Cholelithiasis. Assessment and Plan (1) Melena Narrative/Plan: This is a 55-year-old female who was told to come to the emergency department from her primary care provider after having a workup for anemia. According to the patient she had a positive FOBT in the outpatient setting along with anemia with reports of dark blood in her stool approximately one month ago followed by 2 weeks later having bright red blood per rectum and mixed in her stool. Patient has a history of long-term NSAID use with Modic for neck and back pain. She denies any history of peptic ulcer disease or acid reflux. She states she had a prior colonoscopy in the for hemorrhoids with hemorrhoidectomy. Denies any upper endoscopies. Have to consider the possibility of upper or lower GI blood loss. Possibility of gastritis, esophagitis, peptic ulcer disease as well as diverticular bleed, AVM, and neoplasm cannot be excluded. Plan for upper and lower endoscopy. Current Visit: Yes Status: Acute Code(s): K92.1 - MELENA SNOMED Code(s): 9041608 (2) Anemia Narrative/Plan: Anemia workup ordered Current Visit: Yes Status: Acute Code(s): D64.9 - ANEMIA, UNSPECIFIED SNOMED Code(s): 285391354 Plan: 1. Clear liquid diet, nothing by mouth after midnight 2. Protonix 40 mg twice a day 3. Bowel prep to start this evening 4. Plan for EGD and colonoscopy tomorrow, obtain consent 5. Continue IV antibiotics as ordered 6. Await recommendations from pulmonology and infectious disease 7. Smoking cessation 8. Avoid NSAIDs Thank you for this consultation, we will continue to follow Dr. Kennedy Phillips I agree with the dictator's note, documented as a scribe by Shruti Zhu.
--- NOTE | 2020-11-20 13:04 | P.CNPUL ---
History of Present Illness Consult date: 11/20/20 Reason for consult: abnormal CXR/CT History of present illness: 55-year-old female patient hospitalized for workup of anemia and GI bleed. Chest x-ray showed a new suprahilar masslike opacity and for that reason a computed tomography scan of the chest was done and the CAT scan of the chest revealed a 6 x 4 cm masslike consolidation in the anterior segment of the left upper lobe. No other lung urban are essentially clear. No mediastinal l ymphadenopathy. No hilar lymphadenopathy. CAT scan of the abdomen showed essentially no issues with her liver spleen or stomach or pancreas or gallbladder. There was evidence of some sigmoid diverticulum without diverticulitis. The patient has checked negative for COVID-19. Influenza screen was negative. Hemoglobin at time of admission was 9.1. Platelet counts are elevated at 932. Electrolytes are all within normal limits. Coagulation profile is also within normal limits. She clinically is asymptomatic. She denies having any respiratory difficulties. No coffee no sputum production. No chest tightness. No wheezing. No pleurisy. She has had a minor trauma to her left anterior chest area few weeks back without any significant complications or bruising. No history of any TB exposure. She is a chronic smoker in she smoked about 1 pack of cigarettes a day and she's been smoking since the age of 20. She is 55 and she is working and the [employer]. Review of Systems Eyes: denies as per HPI, denies blurred vision, denies bulging eye, denies decreased vision, denies diplopia, denies discharge, denies dry eye, denies irritation, denies itching, denies pain, denies photophobia, denies loss of peripheral vision, denies loss of vision, denies tunnel vision/blind spots Ears: deny: decreased hearing, ear discharge, earache, tinnitus Ears, nose, mouth and throat: Reports as per HPI Breasts: absent: as per HPI, change in shape, gynecomastia, masses, nipple discharge, pain, skin changes, swelling Cardiovascular: Reports shortness of breath Respiratory: Reports cough Gastrointestinal: Reports as per HPI, Reports melena Genitourinary: Reports as per HPI Menstruation: Reports as per HPI Musculoskeletal: Reports as per HPI Musculoskeletal: absent: ankle pain, ankle stiffness, ankle swelling, as per HPI, elbow pain, elbow stiffness, elbow swelling, foot pain, foot stiffness, f oot swelling, hand pain, hand stiffness, hand swelling, hip pain, hip stiffness, hip swelling, knee pain, knee stiffness, knee swelling, shoulder pain, shoulder stiffness, shoulder swelling, wrist pain, wrist stiffness, wrist swelling Integumentary: Reports as per HPI Neurological: Reports as per HPI Psychiatric: Reports as per HPI Endocrine: Reports as per HPI Hematologic/Lymphatic: Reports as per HPI Allergic/Immunologic: Reports as per HPI Past Medical History Past Medical History: Hyperlipidemia, Hypertension Additional Past Medical History / Comment(s): chronic back pain, glaucoma History of Any Multi-Drug Resistant Organisms: None Reported Past Surgical History: Hysterectomy Additional Past Surgical History / Comment(s): eye stent Past Psychological History: No Psychological Hx Reported Smoking Status: Current every day smoker Past Alcohol Use History: Occasional Past Drug Use History: None Reported Medications and Allergies Home Medications Medication Instructions Recorded Confirmed Type Atenolol [Tenormin] 50 mg PO DAILY 11/19/20 11/19/20 History Atorvastatin [Lipitor] 10 mg PO HS 11/19/20 11/19/20 History Brimonidine Tartrate [Lumify] 1 drop RIGHT EYE DAILY 11/19/20 11/19/20 History Carboxymethylcellulose Sodium 1 drop RIGHT EYE DAILY PRN 11/19/20 11/19/20 History [Refresh Tears] Cetirizine HCl [Zyrtec] 10 mg PO DAILY 11/19/20 11/19/20 History Cyclobenzaprine [Flexeril] 10 mg PO DAILY PRN 11/19/20 11/19/20 History DULoxetine HCL [Cymbalta] 60 mg PO DAILY 11/19/20 11/19/20 History HYDROcodone/APAP 5-325MG [Atkins 1 tab PO DAILY 11/19/20 11/19/20 History 5-325] Losartan Potassium 100 mg PO DAILY 11/19/20 11/19/20 History Meloxicam [Mobic] 15 mg PO DAILY 11/19/20 11/19/20 History Prednisolone Acetate/Pf 1 drop RIGHT EYE DAILY 11/19/20 11/19/20 History [Prednisolone Acet 1% Eye Drop] Sodium Chloride 5% Ophth Oint 1 applic RIGHT EYE DAILY 11/19/20 11/19/20 History [Zen 128] amLODIPine [Norvasc] 5 mg PO DAILY 11/19/20 11/19/20 History cycloSPORINE [Restasis] 1 drop RIGHT EYE HS 11/19/20 11/19/20 History Allergies Allergy/AdvReac Type Severity Reaction Status Date / Time Penicillins Allergy Rash/Hives Verified 11/19/20 14:26 Sulfa (Sulfonamide Allergy Unknown Verified 11/19/20 14:26 Antibiotics) Childhood Physical Exam Vitals: Vital Signs Temp Pulse Pulse Resp BP BP Pulse Ox 11/20/20 07:00 98.7 F 106 H 16 120/78 96 11/20/20 01:25 99.3 F 100 16 124/78 96 11/19/20 22:33 90 16 11/19/20 20:35 100.0 F H 90 148/84 97 11/19/20 18:15 100.3 F H 92 16 129/78 100 11/19/20 17:34 98 F 75 18 124/80 96 11/19/20 15:00 79 18 121/65 99 11/19/20 14:02 69 20 115/70 99 11/19/20 13:21 98.2 F 98 18 145/87 100 Intake and Output 11/19/20 11/20/20 11/20/20 22:59 06:59 14:59 Intake Total 200 180 Balance 200 180 Intake: Oral 200 180 Other: Voiding Method Toilet Toilet Toilet # Voids 2 3 Weight 65.771 kg The patient appeared well nourished and normally developed. Vital signs as documented. Head exam is unremarkable. No scleral icterus or corneal arcus noted. Neck is without jugular venous distension, thyromegaly, or carotid brui ts. Carotid upstrokes are brisk bilaterally. Lungs are diminished breath sounds along with some scattered rhonchi and scattered expiratory wheezes. Cardiac exam reveals the PMI to be normally sized and situated. Rhythm is regular. First and second heart sounds normal. No murmurs, rubs or gallops. Abdominal exam reveals normal bowel sounds, no masses, no organomegaly and no aortic enlargement. Extr emities are nonedematous and both femoral and pedal pulses are normal.Examination of the skin revealed no evidence of significant rashes, suspicious appearing nevi or other concerning lesions. Results - Laboratory Findings CBC and BMP: 11/20/20 04:50 11/20/20 04:50 PT/INR, D-dimer PT 9.6 sec (9.0-12.0) 11/19/20 13:55 INR 0.9 (<1.2) 11/19/20 13:55 Abnormal lab findings: Abnormal Labs 11/19/20 11/19/20 11/19/20 13:55 13:55 14:00 WBC 19.5 H RBC 2.97 L Hgb 9.1 L Hct 28.1 L MCV MCHC RDW Plt Count 932 H Plt Count Comment MPV Immature Gran # Neutrophils # 15.3 H Monocytes # 1.8 H Sodium 133 L Chloride 96 L BUN Creatinine Glucose 102 H Plasma Lactic Acid Ceasar Urine Appearance Ur Leukocyte Esterase Urine WBC Urine Bacteria Stool Occult Blood Positive H 11/19/20 11/20/20 11/20/20 22:54 00:29 04:50 WBC 19.84 H RBC 2.86 L Hgb 8.8 L Hct 27.8 L MCV 97.2 H MCHC 31.7 L RDW 14.6 H Plt Count 831 H Plt Count Comment INCREASED A MPV 8.3 L Immature Gran # 0.12 H Neutrophils # 15.46 H Monocytes # 2.43 H Sodium Chloride BUN Creatinine Glucose Plasma Lactic Acid Ceasar 0.6 L Urine Appearance Cloudy H Ur Leukocyte Esterase Large H Urine WBC 139 H Urine Bacteria Rare H Stool Occult Blood 11/20/20 04:50 WBC RBC Hgb Hct MCV MCHC RDW Plt Count Plt Count Comment MPV Immature Gran # Neutrophils # Monocytes # Sodium 134 L Chloride BUN 6.0 L Creatinine 0.5 L Glucose Plasma Lactic Acid Ceasar Urine Appearance Ur Leukocyte Esterase Urine WBC Urine Bacteria Stool Occult Blood - Diagnostic Findings Chest x-ray: image reviewed CT scan - chest: image reviewed Assessment and Plan Plan: 1 left upper lobe mass, incidental finding, occupying the anterior segment of the left upper lobe, measuring 6 x 4 cm in size with some central necrosis, high likelihood for malignancy and needs further workup. Clinically asymptomatic 2 COPD 3 chronic anemia with a hemoglobin of 8.8 with a possibility of a upper GI bleed 4 leukocytosis/thrombocytosis with elevated platelet count. 5 smoker. 6 hyperlipidemia 7 hypertension Plan Complete the GI workup including EGD and colonoscopy Regarding the left upper lobe mass, the patient will need further diagnostics and the patient would benefit from a fine-needle aspirate the left upper lobe mass based on the location of this mass which is highly accessible for percutaneous biopsy. If nondiagnostic, a bronchoscopy will be indicated. Suspicion for malignancy is high. As for the FNA, this can be done either inpatient or outpatient depending on her length of stay for the GI workup.
--- NOTE | 2020-11-20 16:46 | P.CONS ---
History of Present Illness - Reason for Consult Consult date: 11/20/20 Lung abscess Requesting physician: Thor Chiu - Chief Complaint Elevated white count x one week - History of Present Illness Patient is a 55-year-old female who recently did have a 6 month physical with her primary care physician patient did have blood culture drawn and she was noticed to have elevated white count, CBC has been repeated 2 times and noted to have persistent elevated white count and the patient was advised to go to the hospital, patient on presentation to the hospital was afebrile however did have low-grade fever 100.3 subsequently patient did have white count of 19.5 with a repeat is 19.84 and did have thrombocytosis, patient did have a normal creatinine and liver enzymes, patient did have mildly positive UA, patient did have a chest x-ray with new suprahilar mass like opacity suspicious for focal infiltrate, subsequently have a CT of the chest abdominal pelvis, which did shows a mass like infiltrate in the anterior left upper lobe adjacent to the chest wall consider possibility of lung abscess or necrotic tumor patient also noticed to have a anemia, patient was started on Levaquin and Flagyl because of her penicillin ALLERGY infectious disease was consulted with concern for possible lung abscess, patient currently denies having any fever or any chills, the patient denies having any chest pain or shortness of breath patient did have minimal cough no significant sputum production, denies any nausea no vomiting no abdominal pain and no diarrhea did mention about a month ago she did have small amount of bleeding per rectum however subsequently resolved and patient did not be any attention to it GI has been consulted for further GI workup Review of Systems Positive point has been mentioned in the HPI rest of the systems are negative Past Medical History Past Medical History: Hyperlipidemia, Hypertension Additional Past Medical History / Comment(s): chronic back pain, glaucoma History of Any Multi-Drug Resistant Organisms: None Reported Past Surgical History: Hysterectomy Additional Past Surgical History / Comment(s): eye stent Past Psychological History: No Psychological Hx Reported Smoking Status: Current every day smoker Past Alcohol Use History: Occasional Past Drug Use History: None Reported Medications and Allergies Home Medications Medication Instructions Recorded Confirmed Type Atenolol [Tenormin] 50 mg PO DAILY 11/19/20 11/19/20 History Atorvastatin [Lipitor] 10 mg PO HS 11/19/20 11/19/20 History Brimonidine Tartrate [Lumify] 1 drop RIGHT EYE DAILY 11/19/20 11/19/20 History Carboxymethylcellulose Sodium 1 drop RIGHT EYE DAILY PRN 11/19/20 11/19/20 History [Refresh Tears] Cetirizine HCl [Zyrtec] 10 mg PO DAILY 11/19/20 11/19/20 History Cyclobenzaprine [Flexeril] 10 mg PO DAILY PRN 11/19/20 11/19/20 History DULoxetine HCL [Cymbalta] 60 mg PO DAILY 11/19/20 11/19/20 History HYDROcodone/APAP 5-325MG [Dawson 1 tab PO DAILY 11/19/20 11/19/20 History 5-325] Losartan Potassium 100 mg PO DAILY 11/19/20 11/19/20 History Meloxicam [Mobic] 15 mg PO DAILY 11/19/20 11/19/20 History Prednisolone Acetate/Pf 1 drop RIGHT EYE DAILY 11/19/20 11/19/20 History [Prednisolone Acet 1% Eye Drop] Sodium Chloride 5% Ophth Oint 1 applic RIGHT EYE DAILY 11/19/20 11/19/20 History [Zen 128] amLODIPine [Norvasc] 5 mg PO DAILY 11/19/20 11/19/20 History cycloSPORINE [Restasis] 1 drop RIGHT EYE HS 11/19/20 11/19/20 History Allergies Allergy/AdvReac Type Severity Reaction Status Date / Time Penicillins Allergy Rash/Hives Verified 11/19/20 14:26 Sulfa (Sulfonamide Allergy Unknown Verified 11/19/20 14:26 Antibiotics) Childhood Physical Exam Vitals: Vital Signs Temp Pulse Pulse Resp BP BP Pulse Ox 11/20/20 07:00 98.7 F 106 H 16 120/78 96 11/20/20 01:25 99.3 F 100 16 124/78 96 11/19/20 22:33 90 16 11/19/20 20:35 100.0 F H 90 148/84 97 11/19/20 18:15 100.3 F H 92 16 129/78 100 11/19/20 17:34 98 F 75 18 124/80 96 11/19/20 15:00 79 18 121/65 99 11/19/20 14:02 69 20 115/70 99 11/19/20 13:21 98.2 F 98 18 145/87 100 Intake and Output 11/19/20 11/20/20 11/20/20 22:59 06:59 14:59 Intake Total 200 180 Balance 200 180 Intake: Oral 200 180 Other: Voiding Method Toilet Toilet Toilet # Voids 2 3 Weight 65.771 kg GENERAL DESCRIPTION: Middle-aged male lying in bed, no distress. No tachypnea or accessory muscle of respiration use. HEENT: Shows Pallor , no scleral icterus. Oral mucous membrane is dry. No pharyngeal erythema or thrush NECK: Trachea central, no thyromegaly. LUNGS: Unlabored breathing. Clear to auscultation anteriorly. No wheeze or crackle. HEART: S1, S2, regular rate and rhythm. No loud murmur ABDOMEN: Soft, no tenderness , guarding or rigidity, no organomegaly EXTREMITIES: No edema of feet. SKIN: No rash, no masses palpable. NEUROLOGICAL: The patient is awake, alert, oriented x3, mood and affect normal. Results CBC & Chem 7: 11/20/20 04:50 11/20/20 04:50 Labs: Abnormal Lab Results - Last 24 Hours (Table) 11/19/20 11/19/20 11/19/20 Range/Units 13:55 13:55 14:00 WBC 19.5 H (3.8-10.6) k/uL RBC 2.97 L (3.80-5.40) m/uL Hgb 9.1 L (11.4-16.0) gm/dL Hct 28.1 L (34.0-46.0) % MCV (80.0-97.0) fL MCHC (32.0-37.0) g/dL RDW (11.5-14.5) % Plt Count 932 H (150-450) k/uL Plt Count Comment MPV (9.5-12.2) fL Immature Gran # (0.00-0.04) X 10*3/uL Neutrophils # 15.3 H (1.3-7.7) k/uL Monocytes # 1.8 H (0-1.0) k/uL Sodium 133 L (137-145) mmol/L Chloride 96 L (98-107) mmol/L BUN (9.0-27.0) mg/dL Creatinine (0.6-1.5) mg/dL Glucose 102 H (74-99) mg/dL Plasma Lactic Acid Ceasar (0.7-2.0) mmol/L Urine Appearance (Clear) Ur Leukocyte Esterase (Negative) Urine WBC (0-5) /hpf Urine Bacteria (None) /hpf Stool Occult Blood Positive H (Negative) 11/19/20 11/20/20 11/20/20 Range/Units 22:54 00:29 04:50 WBC 19.84 H (3.8-10.6) k/uL RBC 2.86 L (3.80-5.40) m/uL Hgb 8.8 L (11.4-16.0) gm/dL Hct 27.8 L (34.0-46.0) % MCV 97.2 H (80.0-97.0) fL MCHC 31.7 L (32.0-37.0) g/dL RDW 14.6 H (11.5-14.5) % Plt Count 831 H (150-450) k/uL Plt Count Comment INCREASED A MPV 8.3 L (9.5-12.2) fL Immature Gran # 0.12 H (0.00-0.04) X 10*3/uL Neutrophils # 15.46 H (1.3-7.7) k/uL Monocytes # 2.43 H (0-1.0) k/uL Sodium (137-145) mmol/L Chloride (98-107) mmol/L BUN (9.0-27.0) mg/dL Creatinine (0.6-1.5) mg/dL Glucose (74-99) mg/dL Plasma Lactic Acid Ceasar 0.6 L (0.7-2.0) mmol/L Urine Appearance Cloudy H (Clear) Ur Leukocyte Esterase Large H (Negative) Urine WBC 139 H (0-5) /hpf Urine Bacteria Rare H (None) /hpf Stool Occult Blood (Negative) 11/20/20 Range/Units 04:50 WBC (3.8-10.6) k/uL RBC (3.80-5.40) m/uL Hgb (11.4-16.0) gm/dL Hct (34.0-46.0) % MCV (80.0-97.0) fL MCHC (32.0-37.0) g/dL RDW (11.5-14.5) % Plt Count (150-450) k/uL Plt Count Comment MPV (9.5-12.2) fL Immature Gran # (0.00-0.04) X 10*3/uL Neutrophils # (1.3-7.7) k/uL Monocytes # (0-1.0) k/uL Sodium 134 L (137-145) mmol/L Chloride (98-107) mmol/L BUN 6.0 L (9.0-27.0) mg/dL Creatinine 0.5 L (0.6-1.5) mg/dL Glucose (74-99) mg/dL Plasma Lactic Acid Ceasar (0.7-2.0) mmol/L Urine Appearance (Clear) Ur Leukocyte Esterase (Negative) Urine WBC (0-5) /hpf Urine Bacteria (None) /hpf Stool Occult Blood (Negative) Microbiology - Last 24 Hours (Table) 11/19/20 22:54 Urine Culture - Preliminary Urine,Voided Assessment and Plan Assessment: 1- patient with abnormal chest x-ray followed by abnormal CT of the chest with concern for mass like opacity and possible necrotic tumor in this patient clinic ally not behaving as a lung abscess as the patient does not look toxic did have a low-grade fever, did have elevated white count which could be associated possible necrotic tumor as well as pneumonia 2-Patient with multiple antibiotic ALLERGIES that would limit the number of antibiotic safe to use (1) Leukocytosis Current Visit: Yes Status: Acute Code(s): D72.829 - ELEVATED WHITE BLOOD CELL COUNT, UNSPECIFIED SNOMED Code(s): 819232363 (2) Abnormal CT scan, chest Current Visit: Yes Status: Acute Code(s): R93.89 - ABNORMAL FINDINGS ON DX IMAGING OF OTH BODY STRUCTURES SNOMED Code(s): 71436357361166508 Plan: 1- await fine-needle aspiration of this area, in addition to histopathology fluid should be sent for culture 2-we will check a CRP pro calcitonin level 3-continue the Levaquin and Flagyl We will follow on clinical condition and cultures to further adjust medication if needed Thank you for this consultation will follow this patient with you
[2020-11-20] MEDS ORDERED: PEG 3350-NA SULF,BICARB,CL/KCL 4,000 ML BOTTLE PO ONE (17:00)
[2020-11-20] MEDS: SODIUM CHLORIDE 0.9% 1,000 ML IV SCH ×2 (19:37→19:38)
[2020-11-20] MEDS: cycloSPORINE 0.05% OPHTH 0.4 ML DROPERETTE RIGHT EYE SCH (21:04)
[2020-11-20] MEDS: ATORVASTATIN 10 MG TAB PO SCH (21:05)
[2020-11-20] MEDS: HYDROcodone/APAP 5-325MG 1 EACH TAB PO PRN (21:09)
[2020-11-20 22:23] LABS: Ferritin 40.2 ng/mL (10.0-291.0)
[2020-11-20 22:26] LABS: % Iron Saturation 2.34 (12.00-45.00)
[2020-11-20] MEDS: LEVOFLOXACIN 750MG-D5W PMX 750 MG in DEXTROSE/WATER 1 150ML.BAG IVPB SCH (23:15)
--- NOTE | 2020-11-20 23:31 | P.PN ---
Subjective Progress Note Date: 11/20/20 Patient is a 55-year-old female with a known history of hypertension, hyperlipidemia, chronic back pain, glaucoma and currently everyday smoker and alcohol use 1-2 beers on daily basis was sent to ER from Dr. Zafar office due to concern for GI bleed and elevated WBC count. Patient states that she did have dark-colored stool about a month ago followed by episodes of bright red blood per rectum. Patient does have history of hemorrhoids and had colonoscopy several years ago. Denies any dark-colored stool, hematemesis during the last few days. Otherwise patient does drink on a daily basis. Patient was sent to ER for evaluation. Denies any dysuria or hematuria. Laboratory data showed WBC 19.5 hemoglobin 9.1 and platelets 932 T-max was 100.3. Currently oxygenating at 99% on room air. Neutrophils 15.3 and monocytes 1.8 Liver enzymes are not elevated Sodium 133 potassium 4.3 chloride 96 and FOBT positive. Coronavirus PCR not detected Chest x-ray showed new suprahilar masslike opacity suspicious for focal infiltrate and less likely alveolar hemorrhage given patient's history. Progressive study advised rule out underlying nodule. EKG showed normal sinus rhythm CT of the abdomen pelvis and chest was done showed masslike infiltrate in the anterior left upper lobe adjacent to the chest wall. I would consider possibilities of lung abscess and necrotic tumor. Follow-up recommended. There is some colonic diverticulosis without diverticulitis. Cholelithiasis. 11/20/2020 Patient is currently resting in the bed comfortably. Denies any further episodes of dark-colored stool. No bowel event today. Patient is being continued on Protonix 40 mg twice daily. GI is planning for EGD tomorrow. Otherwise patient is being continued antibiotics in the form of Levaquin and Flagyl. ID and pulmonary has seen the patient. Pulmonary points fine-needle aspiration due to high suspicion for malignancy. Laboratory data showed WBC went up to 19.8, hemoglobin 8.8 and platelets 831 Sodium 134 potassium 4.7 BUN 16 creatinine 0.5 Iron level 7 and TIBC 299 ferritin 40.29% desaturation 2.34 Current medications reviewed. Objective - Vital Signs Vital signs: Vital Signs Temp 97.6 F 11/20/20 20:00 Pulse 80 11/20/20 20:00 Resp 18 11/20/20 20:00 BP 113/77 11/20/20 20:00 Pulse Ox 100 11/20/20 20:00 Intake & Output 11/20/20 11/20/20 11/21/20 06:59 18:59 06:59 Intake Total 180 Balance 180 Intake: Oral 180 Other: Voiding Method Toilet Toilet Toilet # Voids 3 1 3 - Exam PHYSICAL EXAMINATION: Patient is lying in the bed comfortably, no acute distress, awake alert and oriented.. HEENT: Normocephalic. Neck is supple. Pupils reactive. Nostrils clear. Oral cavity is moist. Ears reveal no drainage. Neck reveals no JVD, carotid bruits, or thyromegaly. CHEST EXAMINATION: Trachea is central. Symmetrical expansion. Lung urban clear to auscultation and percussion. CARDIAC: Normal S1, S2 with no gallops. No murmurs ABDOMEN: Soft. Bowel sounds normal. No organomegaly. No abdominal bruits. Extremities: reveal no edema. No clubbing or cyanosis Neurologically awake, alert, oriented x3 with well-coordinated movements. No focal deficits noted Skin: No rash or skin lesions. Psychiatric: Coperative. Nonsuicidal Musculoskeletal: No joint swelling or deformity. Normal range of motion. - Labs CBC & Chem 7: 11/20/20 04:50 11/20/20 04:50 Labs: Abnormal Lab Results - Last 24 Hours (Table) 11/19/20 11/20/20 11/20/20 Range/Units 22:54 00:29 04:50 WBC 19.84 H (4.50-10.00) X 10*3/uL RBC 2.86 L (4.10-5.20) X 10*6/uL Hgb 8.8 L (12.0-15.0) g/dL Hct 27.8 L (37.2-46.3) % MCV 97.2 H (80.0-97.0) fL MCHC 31.7 L (32.0-37.0) g/dL RDW 14.6 H (11.5-14.5) % Plt Count 831 H (140-440) X 10*3/uL Plt Count Comment INCREASED A MPV 8.3 L (9.5-12.2) fL Immature Gran # 0.12 H (0.00-0.04) X 10*3/uL Neutrophils # 15.46 H (1.80-7.70) X 10*3/uL Monocytes # 2.43 H (0.20-1.00) X 10*3/uL Sodium (135-145) mmol/L BUN (9.0-27.0) mg/dL Creatinine (0.6-1.5) mg/dL Plasma Lactic Acid Ceasar 0.6 L (0.7-2.0) mmol/L Iron (50-170) ug/dL % Saturation (12.00-45.00) Urine Appearance Cloudy H (Clear) Ur Leukocyte Esterase Large H (Negative) Urine WBC 139 H (0-5) /hpf Urine Bacteria Rare H (None) /hpf 11/20/20 11/20/20 Range/Units 04:50 04:50 WBC (4.50-10.00) X 10*3/uL RBC (4.10-5.20) X 10*6/uL Hgb (12.0-15.0) g/dL Hct (37.2-46.3) % MCV (80.0-97.0) fL MCHC (32.0-37.0) g/dL RDW (11.5-14.5) % Plt Count (140-440) X 10*3/uL Plt Count Comment MPV (9.5-12.2) fL Immature Gran # (0.00-0.04) X 10*3/uL Neutrophils # (1.80-7.70) X 10*3/uL Monocytes # (0.20-1.00) X 10*3/uL Sodium 134 L (135-145) mmol/L BUN 6.0 L (9.0-27.0) mg/dL Creatinine 0.5 L (0.6-1.5) mg/dL Plasma Lactic Acid Ceasar (0.7-2.0) mmol/L Iron 7 L (50-170) ug/dL % Saturation 2.34 L (12.00-45.00) Urine Appearance (Clear) Ur Leukocyte Esterase (Negative) Urine WBC (0-5) /hpf Urine Bacteria (None) /hpf Microbiology - Last 24 Hours (Table) 11/19/20 22:54 Urine Culture - Preliminary Urine,Voided Assessment and Plan Assessment: Left upper lobe masslike infiltrate with possible lung abscess versus necrotic tumor.High suspicious for malignancy. Sepsis secondary to above Acute blood loss anemia. Likely due to GI bleed with dark stools. Iron deficiency anemia History of hemorrhoids Daily alcohol use 1-2 beers. Ongoing nicotine addiction Hypertension Hyperlipidemia DVT prophylaxis with SCDs due to GI bleed. Plan: Patient will be continued on IV hydration with normal saline at 100 cc per hour. Monitor H&H. Continue with PPI. Patient was started on antibiotics in the form of Levaquin and Flagyl. Patient is allergic to penicillins. Follow-up blood cultures and Tylenol as needed for fever. Pulmonary, ID and GI is following..GI is planning for EGD tomorrow. Patient will need fine-needle aspiration for biopsy and highly suspicious for malignancy. Clear liquid diet and follow-up closely. Further recommendations based on clinical course. Smoking cessation and alcohol abstinence has been counseled extensively. Monitor for alcohol withdrawal symptoms. Time with Patient: Greater than 30
[2020-11-21] MEDS: SODIUM CHLORIDE 0.9% 1,000 ML IV SCH ×3 (05:09→23:04)
[2020-11-21] MEDS ORDERED: PROPOFOL 10 MG/ML 20 ML VIAL IV ONE (07:59)
[2020-11-21] MEDS ORDERED: IV FLUID CONTINUATION 1,000 ML IV ONE (08:15)
--- NOTE | 2020-11-21 08:21 | P.PCN ---
Date of Procedure: 11/21/20 Procedure(s) Performed: Brief history: Patient is a pleasant 55-year-old white female admitted hospital with anemia and intermittent rectal bleeding. She is hence scheduled for an upper endoscopy as well as colonoscopy today , Procedure performed: Esophagogastroduodenoscopy with biopsy Colonoscopy Preoperative diagnosis: Anemia Intermittent rectal bleeding Anesthesia: [facility] [place] [facility] [place] Procedure: After informed consent was obtained from the patient was brought into the endoscopy unit and IV sedation was administered by anesthesia under continuous monitoring. Initially upper endoscopy was done. The Olympus GF 160 video endoscope was inserted inserted into the mouth and esophagus intubated without any difficulty and was gradually advanced into the stomach and duodenum and carefully examined. The bulb and second part of the duodenum appeared normal. The scope was then withdrawn into the stomach adequately insufflated with air and upon careful examination the antrum had mild gastritis and biopsies were done from this area. The body, cardia and fundus appeared normal. The scope was then withdrawn into the esophagus. small hiatal hernia noted. The GE junction was located at 40 cm to the incisors. It appeared regular wit2 superficial erosions consistent with LA grade a reflux esophagitis.Rest of the esophagus appeared normal. Patient tolerated the procedure well. At this time the patient continued to remain sedation. Initial digital rectal examination was normal. Olympus CF 160 video colonoscope was then inserted into the rectum and gradually advanced to the cecum without any difficulty. Careful examination was performed as the scope was gradually being withdrawn. The prep was excellent. The cecum, ascending colon, transverse colon, descending colon, sigmoid colon and rectum appeared normal. Scattered left sided diverticulosis seen. Retroflexion was performed in the rectum and grade 2 internal hemorrhoids were noted. Patient tolerated the procedure well. Impression: 1. Upper endoscopy revealed small hiatal hernia, LA grade A reflux esophagitis and mild gastritis 2. Colonoscopy revealed scattered left sided diverticulosis and grade 2 internal hemorrhoids Recommendations: Findings of this examination were discussed with the patient, she was advised to follow with the biopsy results. Diet will be advanced as tolerated. She can be discharged home today.
[2020-11-21] MEDS: LORATADINE 10 MG TAB PO SCH (08:49)
[2020-11-21] MEDS: amLODIPine 5 MG TAB PO SCH (08:49)
[2020-11-21] MEDS: DULoxetine HCL 60 MG CAPSULE.DR PO SCH (08:49)
[2020-11-21] MEDS: THIAMINE 100 MG TAB PO SCH (08:49)
[2020-11-21] MEDS: metroNIDAZOLE-NS PMX 500 MG in SALINE 1 100ML.BAG IVPB SCH ×3 (08:50→23:04)
[2020-11-21] MEDS: atenoloL 50 MG TAB PO SCH (08:50)
[2020-11-21] MEDS: NICOTINE 21MG/24HR PATCH TRANSDERM SCH (08:52)
[2020-11-21] MEDS: prednisoLONE ACETATE 1% OPHTH DROPS 5 ML BTL RIGHT EYE SCH (08:53)
[2020-11-21] MEDS: ARTIFICIAL TEARS-HYPROMELLOSE DROPS 15 ML BTL RIGHT EYE PRN ×2 (08:53→08:55)
[2020-11-21] MEDS: BRIMONIDINE TARTRATE 0.2% DROPS 5 ML BTL RIGHT EYE SCH (08:53)
[2020-11-21] MEDS: PANTOPRAZOLE 40 MG/10 ML VIAL IV SCH (08:53)
[2020-11-21] MEDS: SODIUM CHLORIDE 5% OPHTH OINT 3.5 GM TUBE RIGHT EYE SCH (09:21)
[2020-11-21 09:24] LABS: Basophils # (A) 0.07 X 10*3/uL (0.00-0.10); Basophils % (A) 0.4 %; Eosinophils # (A) 0.25 X 10*3/uL (0.04-0.35); Eosinophils % (A) 1.6 %; HCT 25.4 % (37.2-46.3); HGB 8.1 g/dL (12.0-15.0); Lymphocytes # (A) 1.62 X 10*3/uL (0.90-5.00); Lymphocytes % (A) 10.2 %; MCHC 31.9 g/dL (32.0-37.0); MCV 97.3 fL (80.0-97.0); Mean Platelet Volume 8.4 fL (9.5-12.2); Monocytes # (A) 1.97 X 10*3/uL (0.20-1.00); Monocytes % (A) 12.4 %; Neutrophils % (A) 74.6 %; Platelet Count 792 X 10*3/uL (140-440); RBC 2.61 X 10*6/uL (4.10-5.20); RDW 14.8 % (11.5-14.5); WBC 15.83 X 10*3/uL (4.50-10.00)
[2020-11-21 09:38] LABS: African American GFR (CKD) 135.9 (60.0-200.0); Anion Gap 9.5 mmol/L (4.00-12.00); BUN/Creat Ratio 12.5 Ratio (12.00-20.00); Calcium 8.4 mg/dL (8.7-10.3); Carbon Dioxide 23.5 mmol/L (21.6-31.8); Non-African American GFR(CKD) 117.3 (60.0-200.0); Potassium 4.5 mmol/L (3.5-5.5)
[2020-11-21] MEDS: FERROUS SULFATE 325 MG TAB PO SCH ×2 (13:14→17:53)
--- NOTE | 2020-11-21 13:44 | P.PN ---
Subjective Progress Note Date: 11/21/20 11/21/2020, the patient is being seen for a follow-up. No evidence of any ongoing GI bleed. The patient underwent aEGD and colonoscopy and the patient was found to have some grade 1 esophagitis and mild gastritis and the patient has diverticulosis and grade 2 internal hemorrhoids. She is back to normal diet. For now, the concern is the left upper lobe mass for which I'm recommending a fine-needle aspirate. This can be done also on outpatient basis, depending whether the patient is going to be staying or get discharged today. No complaints otherwise for now. Hemoglobin stable. Objective - Vital Signs Vital signs: Vital Signs Temp 98.6 F 11/21/20 07:00 Pulse 97 11/21/20 07:00 Resp 18 11/21/20 07:00 BP 114/74 11/21/20 07:00 Pulse Ox 96 11/21/20 07:00 Intake & Output 11/20/20 11/21/20 11/21/20 18:59 06:59 18:59 Intake Total 180 200 Balance 180 200 Intake: IV 200 Oral 180 Other: Voiding Method Toilet Toilet # Voids 1 2 - Exam The patient appeared well nourished and normally developed. Vital signs as documented. Head exam is unremarkable. No scleral icterus or corneal arcus noted. Neck is without jugular venous distension, thyromegaly, or carotid bruits. Carotid upstrokes are brisk bilaterally. Lungs are clear to auscultation and percussion. Cardiac exam reveals the PMI to be normally sized and situated. Rhythm is regular. First and second heart sounds normal. No murmurs, rubs or gallops. Abdominal exam reveals normal bowel sounds, no masses, no organomegaly and no aortic enlargement. Extremities are nonedematous and both femoral and pedal pulses are normal. - Labs CBC & Chem 7: 11/21/20 05:29 11/21/20 05:29 Labs: Abnormal Lab Results - Last 24 Hours (Table) 11/20/20 11/21/20 11/21/20 Range/Units 04:50 05:29 05:29 WBC 15.83 H (4.50-10.00) X 10*3/uL RBC 2.61 L (4.10-5.20) X 10*6/uL Hgb 8.1 L (12.0-15.0) g/dL Hct 25.4 L (37.2-46.3) % MCV 97.3 H (80.0-97.0) fL MCHC 31.9 L (32.0-37.0) g/dL RDW 14.8 H (11.5-14.5) % Plt Count 792 H (140-440) X 10*3/uL MPV 8.4 L (9.5-12.2) fL Immature Gran # 0.12 H (0.00-0.04) X 10*3/uL Neutrophils # 11.80 H (1.80-7.70) X 10*3/uL Monocytes # 1.97 H (0.20-1.00) X 10*3/uL BUN 5.0 L (9.0-27.0) mg/dL Creatinine 0.4 L (0.6-1.5) mg/dL Calcium 8.4 L (8.7-10.3) mg/dL Iron 7 L (50-170) ug/dL % Saturation 2.34 L (12.00-45.00) Microbiology - Last 24 Hours (Table) 11/20/20 00:29 Blood Culture - Preliminary Blood No Growth after 24 hours 11/19/20 22:54 Urine Culture - Final Urine,Voided Assessment and Plan Plan: 1 left upper lobe mass, incidental finding, occupying the anterior segment of the left upper lobe, measuring 6 x 4 cm in size with some central necrosis, high likelihood for malignancy and needs further workup. Clinically asymptomatic 2 COPD 3 chronic anemia with a hemoglobin of 8.8 with a possibility of a upper GI bleed. EGD was completed and patient has also colonoscopy. The patient has mild gastritis, esophagitis, diverticulosis, internal hemorrhoids 4 leukocytosis/thrombocytosis with elevated platelet count. 5 smoker. 6 hyperlipidemia 7 hypertension Plan Results of the colonoscopy and EGD was noted No evidence of any acute GI bleed Regarding the left upper lobe mass, the patient will need further diagnostics and the patient would benefit from a fine-needle aspirate the left upper lobe mass based on the location of this mass which is highly accessible for percutaneous biopsy. If nondiagnostic, a bronchoscopy will be indicated. Suspicion for malignancy is high. As for the FNA, this can be done either Monday or Monday of next week if the patient remains inpatient or can be arranged through my office on outpatient basis depending on her discharge planning.
[2020-11-21] MEDS: LEVOFLOXACIN 750MG-D5W PMX 750 MG in DEXTROSE/WATER 1 150ML.BAG IVPB SCH (20:47)
[2020-11-21] MEDS: cycloSPORINE 0.05% OPHTH 0.4 ML DROPERETTE RIGHT EYE SCH (20:48)
[2020-11-21] MEDS: ATORVASTATIN 10 MG TAB PO SCH (20:49)
[2020-11-21] MEDS: HYDROcodone/APAP 5-325MG 1 EACH TAB PO PRN (20:49)
--- NOTE | 2020-11-21 22:16 | P.PN ---
Subjective Progress Note Date: 11/21/20 Principal diagnosis: Acute blood loss anemia Lung mass and possible abscess. Patient is a 55-year-old female with a known history of hypertension, hyperlipidemia, chronic back pain, glaucoma and currently everyday smoker and alcohol use 1-2 beers on daily basis was sent to ER from Dr. Zafar office due to concern for GI bleed and elevated WBC count. Patient states that she did have dark-colored stool about a month ago followed by episodes of bright red blood per rectum. Patient does have history of hemorrhoids and had colonoscopy several years ago. Denies any dark-colored stool, hematemesis during the last few days. Otherwise patient does drink on a daily basis. Patient was sent to ER for evaluation. Denies any dysuria or hematuria. Laboratory data showed WBC 19.5 hemoglobin 9.1 and platelets 932 T-max was 100.3. Currently oxygenating at 99% on room air. Neutrophils 15.3 and monocytes 1.8 Liver enzymes are not elevated Sodium 133 potassium 4.3 chloride 96 and FOBT positive. Coronavirus PCR not detected Chest x-ray showed new suprahilar masslike opacity suspicious for focal infiltrate and less likely alveolar hemorrhage given patient's history. Progre ssive study advised rule out underlying nodule. EKG showed normal sinus rhythm CT of the abdomen pelvis and chest was done showed masslike infiltrate in the anterior left upper lobe adjacent to the chest wall. I would consider possibilities of lung abscess and necrotic tumor. Follow-up recommended. There is some colonic diverticulosis without diverticulitis. Cholelithiasis. 11/20/2020 Patient is currently resting in the bed comfortably. Denies any further episodes of dark-colored stool. No bowel event today. Patient is being continued on Protonix 40 mg twice daily. GI is planning for EGD tomorrow. Otherwise patient is being continued antibiotics in the form of Levaquin and Flagyl. ID and pulmonary has seen the patient. Pulmonary points fine-needle aspiration due to high suspicion for malignancy. Laboratory data showed WBC went up to 19.8, hemoglobin 8.8 and platelets 831 Sodium 134 potassium 4.7 BUN 16 creatinine 0.5 Iron level 7 and TIBC 299 ferritin 40.29% desaturation 2.34 11/21/2020 Patient is currently sitting in a chair comfortably. No complaints of chest pain or shortness breath. Status post EGD and colonoscopy showed small hiatal hernia, reflux esophagitis and mild gastritis also noted to have left-sided diverticulosis and grade 2 hemorrhoids. Patient is being continued on IV antibiotics in the form of Levaquin and Flagyl. Still having significant leukocytosis with WBC count 15.8 and hemoglobin dropped down to 8.1 today. Patient is also iron deficient and was started on oral iron supplementation. Monitor H&H and advance diet as tolerated. Pulmonary recommends fine-needle aspiration biopsy of the left upper lobe tumor which can be done as an outpatient. Anticipate discharge next 24 hours with improvement in leukocytosis and hemoglobin level. Final antibiotic recommendations as per ID. Patient has been afebrile. No nausea vomiting or abdominal pain or diarrhea. Denied any further dark-colored stools. Current medications reviewed. Objective - Vital Signs Vital signs: Vital Signs Temp 98.3 F 11/21/20 15:00 Pulse 82 11/21/20 15:00 Resp 18 11/21/20 15:00 BP 108/70 11/21/20 15:00 Pulse Ox 97 11/21/20 15:00 Intake & Output 11/20/20 11/21/20 11/21/20 18:59 06:59 18:59 Intake Total 180 200 Balance 180 200 Intake: IV 200 Oral 180 Other: Voiding Method Toilet Toilet # Voids 1 2 3 - Exam PHYSICAL EXAMINATION: Patient is lying in the bed comfortably, no acute distress, awake alert and oriented.. HEENT: Normocephalic. Neck is supple. Pupils reactive. Nostrils clear. Oral cavi ty is moist. Ears reveal no drainage. Neck reveals no JVD, carotid bruits, or thyromegaly. CHEST EXAMINATION: Trachea is central. Symmetrical expansion. Lung urban clear to auscultation and percussion. CARDIAC: Normal S1, S2 with no gallops. No murmurs ABDOMEN: Soft. Bowel sounds normal. No organomegaly. No abdominal bruits. Extremities: reveal no edema. No clubbing or cyanosis Neurologically awake, alert, oriented x3 with well-coordinated movements. No focal deficits noted Skin: No rash or skin lesions. Psychiatric: Coperative. Nonsuicidal Musculoskeletal: No joint swelling or deformity. Normal range of motion. - Labs CBC & Chem 7: 11/21/20 05:29 05/08/21 05:29 Labs: Abnormal Lab Results - Last 24 Hours (Table) 11/20/20 11/21/20 11/21/20 Range/Units 04:50 05:29 05:29 WBC 15.83 H (4.50-10.00) X 10*3/uL RBC 2.61 L (4.10-5.20) X 10*6/uL Hgb 8.1 L (12.0-15.0) g/dL Hct 25.4 L (37.2-46.3) % MCV 97.3 H (80.0-97.0) fL MCHC 31.9 L (32.0-37.0) g/dL RDW 14.8 H (11.5-14.5) % Plt Count 792 H (140-440) X 10*3/uL MPV 8.4 L (9.5-12.2) fL Immature Gran # 0.12 H (0.00-0.04) X 10*3/uL Neutrophils # 11.80 H (1.80-7.70) X 10*3/uL Monocytes # 1.97 H (0.20-1.00) X 10*3/uL BUN 5.0 L (9.0-27.0) mg/dL Creatinine 0.4 L (0.6-1.5) mg/dL Calcium 8.4 L (8.7-10.3) mg/dL Iron 7 L (50-170) ug/dL % Saturation 2.34 L (12.00-45.00) Microbiology - Last 24 Hours (Table) 11/20/20 00:29 Blood Culture - Preliminary Blood No Growth after 24 hours 11/19/20 22:54 Urine Culture - Final Urine,Voided Assessment and Plan Assessment: Left upper lobe masslike infiltrate with possible lung abscess versus necrotic tumor.High suspicious for malignancy. Sepsis secondary to above Acute blood loss anemia. Likely due to GI bleed with dark stools. Iron deficiency anemia History of hemorrhoids Daily alcohol use 1-2 beers. Ongoing nicotine addiction Hypertension Hyperlipidemia DVT prophylaxis with SCDs due to GI bleed. Plan: Patient will be continued on IV hydration with normal saline at 100 cc per hour. Monitor H&H. Continue with PPI. Patient was started on antibiotics in the form of Levaquin and Flagyl. Patient is allergic to penicillins. Follow-up blood cultures and Tylenol as needed for fever. Pulmonary, ID and GI is following.Patient is status post EGD and colonoscopy. Report as above.. Patient will need fine-needle aspiration for biopsy and highly suspicious for malignancy. advance diet and follow-up closely. Further recommendations based on clinical course. Smoking cessation and alcohol abstinence has been counseled extensively. Monitor for alcohol withdrawal symptoms. Time with Patient: Greater than 30
--- NOTE | 2020-11-21 22:26 | PN ---
PROGRESS NOTE DATE OF SERVICE: 11/21/2020 REASON FOR FOLLOWUP: Abnormal x-ray and CT with a question of necrotic tumor versus abscess. INTERVAL HISTORY: The patient is currently afebrile. The patient is status post EGD and colonoscopy with evidence of mild gastritis and some diverticulosis and no evidence of any malignancy. The patient tolerated the procedure. Patient denies having any chest pain or shortness of breath or significant cough. No nausea. No vomiting. No abdominal pain or diarrhea. PHYSICAL EXAMINATION: Blood pressure 108/70 with a pulse of 82, temperature 98.3. She is 97% on room air. General description: The patient is a middle-aged female lying in bed in no distress. Respiratory system: Unlabored breathing, decreased intensity of breath sounds in the base, with no wheeze. Heart S1, S2. Regular rate and rhythm. ABDOMEN: Soft, no tenderness. LABS: Hemoglobin 8.1, white count 15.83 with a BUN of 5, creatinine 0.4. Procalcitonin requested pending. DIAGNOSTIC IMPRESSION AND PLAN: Patient admitted to the hospital with elevated white count which is multifactorial in this patient who did have abnormality seen on the CT as well as the chest x-ray with concern for necrotic tumor versus abscess. The patient's white count did respond to the antibiotic therapy currently on Levaquin and Flagyl to continue. Try to obtain a sputum. Await CT-guided aspirate, biopsies and cultures. Continue supportive care. MMODL / IJN: [id number] /
[2020-11-22 05:52] LABS: Basophils % (A) 0 %; Eosinophils # (A) 0.4 k/uL (0-0.7); Eosinophils % (A) 3 %; HGB 9.1 gm/dL (11.4-16.0); Hypochromasia Slight; Lymphocytes # (A) 1.5 k/uL (1.0-4.8); Lymphocytes % (A) 12 %; MCHC 32.5 g/dL (31.0-37.0); MCV 95.2 fL (80.0-100.0); Mean Platelet Volume 6.6; Monocytes # (A) 1.2 k/uL (0-1.0); Monocytes % (A) 9 %; Neutrophils # (A) 10.1 k/uL (1.3-7.7); Neutrophils % (A) 75 %; Platelet Count 932 k/uL (150-450); RBC 2.94 m/uL (3.80-5.40); WBC 13.4 k/uL (3.8-10.6)
[2020-11-22 08:02] VITALS: RESP 18
[2020-11-22] MEDS: NICOTINE 21MG/24HR PATCH TRANSDERM SCH (08:04)
[2020-11-22] MEDS: LORATADINE 10 MG TAB PO SCH (08:05)
[2020-11-22] MEDS: atenoloL 50 MG TAB PO SCH (08:05)
[2020-11-22] MEDS: metroNIDAZOLE-NS PMX 500 MG in SALINE 1 100ML.BAG IVPB SCH (08:05)
[2020-11-22] MEDS: PANTOPRAZOLE 40 MG/10 ML VIAL IV SCH (08:05)
[2020-11-22] MEDS: THIAMINE 100 MG TAB PO SCH (08:05)
[2020-11-22] MEDS: FERROUS SULFATE 325 MG TAB PO SCH ×2 (08:05→13:15)
[2020-11-22] MEDS: amLODIPine 5 MG TAB PO SCH (08:05)
[2020-11-22] MEDS: ARTIFICIAL TEARS-HYPROMELLOSE DROPS 15 ML BTL RIGHT EYE PRN (08:07)
[2020-11-22] MEDS: prednisoLONE ACETATE 1% OPHTH DROPS 5 ML BTL RIGHT EYE SCH (08:07)
[2020-11-22] MEDS: BRIMONIDINE TARTRATE 0.2% DROPS 5 ML BTL RIGHT EYE SCH (08:07)
[2020-11-22] MEDS: DULoxetine HCL 60 MG CAPSULE.DR PO SCH (08:09)
[2020-11-22] MEDS: SODIUM CHLORIDE 5% OPHTH OINT 3.5 GM TUBE RIGHT EYE SCH (08:15)
--- NOTE | 2020-11-22 08:51 | PN ---
PROGRESS NOTE DATE OF DICTATION: November 22, 2020 The patient is a 55-year-old pleasant white female admitted to hospital with anemia and intermittent rectal bleeding as well as leukocytosis. She underwent an EGD and colonoscopy yesterday as a part of evaluation of anemia and she was noted to have LA grade D reflux esophagitis, small hiatal hernia and mild gastritis and a colonoscopy revealed scattered left-sided diverticulosis and internal hemorrhoids. The patient was also diagnosed with possible lung abscess versus necrotic tumor for which she is currently being followed by Pulmonary and Dr. Rea on broad-spectrum antibiotics, doing well. She denies any new symptoms today. PHYSICAL EXAMINATION: Appears comfortable. No apparent distress. Vital signs stable. Blood pressure is 112/86, pulse rate 79, temperature 97.6. HEENT examination unremarkable. Conjunctivae pink. Sclerae anicteric. Oral cavity no lesions. NECK no JVD or lymph node enlargement. CHEST was clear auscultation. HEART: Regular rate and rhythm. ABDOMEN: Soft. Bowel sounds are positive. No organomegaly. EXTREMITIES: No pedal edema. NEURO: She is alert and oriented x3. No focal deficits. LABS: WBC 13.4, hemoglobin 9.1. Platelets 932. Iron indices, ferritin is 40, iron 7, TIBC 299, and iron saturation 2.3%. IMPRESSION: 1. Iron deficiency anemia, status post EGD and colonoscopy yesterday that revealed a small hiatal hernia, mild gastritis and LA grade D reflux esophagitis as well as small internal hemorrhoids and diverticulosis. Patient clinically no further bleeding. Hemoglobin is at 9.1 g/dL and remains stable. 2. Lung abscess versus lung mass. Dr. Rea and Dr. Gomez following the patient closely. 3. History of hypertension, hyperlipidemia. RECOMMENDATIONS: 1. Monitor CBC daily. 2. No need for any further workup in regard to anemia. 3. Start on iron supplements for iron deficiency anemia. 4. Continue broad-spectrum antibiotics. 5. We will follow with you. Thank you for this consultation. MMODL / IJN: [id number] /
[2020-11-22 10:01] LABS: African American GFR (CKD) 126.3 (60.0-200.0); Calcium 8.7 mg/dL (8.7-10.3); Potassium 4.2 mmol/L (3.5-5.5)
--- NOTE | 2020-11-22 12:47 | P.PN ---
Subjective Progress Note Date: 11/22/20 She is seen today November 22, 2020 in follow-up on the regular medical floor. She is currently sitting up in bed. Awake and alert in no acute distress. Maintaining good O2 saturations in the 90s on room air. No shortness of breath, cough or congestion. No hemoptysis. White count 13.4. Hemoglobin 9.1. Sodium 136. Potassium 4.2. Creatinine 0.5. Remains on Levaquin and Flagyl per ID services. Objective - Vital Signs Vital signs: Vital Signs Temp 98.1 F 11/22/20 07:00 Pulse 88 11/22/20 08:00 Resp 18 11/22/20 08:00 BP 127/72 11/22/20 07:00 Pulse Ox 95 11/22/20 07:00 Intake & Output 11/21/20 11/22/20 11/22/20 18:59 06:59 18:59 Intake Total 740 2150 540 Balance 740 2150 540 Intake: IV 200 Intake, IV Titration 1200 Amount Sodium Chloride 0.9% 1, 1200 000 ml @ 100 mls/hr IV . [facility] Rx#:[id number] Oral 540 950 540 Other: Voiding Method Toilet Toilet # Voids 3 2 - Exam GENERAL EXAM: Alert, active, 55-year-old female patient, on room air, comfortable in no apparent distress. HEAD: Normocephalic. EYES: Normal reaction of pupils, equal size. NOSE: Clear with pink turbinates. THROAT: No erythema or exudates. NECK: No masses, no JVD. CHEST: No chest wall deformity. LUNGS: Equal air entry with no crackles, wheeze, rhonchi or dullness. CVS: S1 and S2 normal with no audible murmur, regular rhythm. ABDOMEN: No hepatosplenomegaly, normal bowel sounds, no guarding or rigidity. SPINE: No scoliosis or deformity SKIN: No rashes CENTRAL NERVOUS SYSTEM: No focal deficits, tone is normal in all 4 extremities. EXTREMITIES: There is no peripheral edema. No clubbing, no cyanosis. Peripheral pulses are intact. - Labs CBC & Chem 7: 11/22/20 05:21 11/22/20 05:21 Labs: Abnormal Lab Results - Last 24 Hours (Table) 05/09/21 05/09/21 Range/Units 05:21 05:21 WBC 13.4 H (3.8-10.6) k/uL RBC 2.94 L (3.80-5.40) m/uL Hgb 9.1 L (11.4-16.0) gm/dL Hct 28.0 L (34.0-46.0) % Plt Count 932 H (150-450) k/uL Neutrophils # 10.1 H (1.3-7.7) k/uL Monocytes # 1.2 H (0-1.0) k/uL BUN 5.0 L (9.0-27.0) mg/dL Creatinine 0.5 L (0.6-1.5) mg/dL BUN/Creatinine Ratio 10.00 L (12.00-20.00) Ratio Microbiology - Last 24 Hours (Table) 11/20/20 00:29 Blood Culture - Preliminary Blood No Growth after 48 hours Assessment and Plan Assessment: Left upper lobe mass, incidental finding, occupying the anterior segment of the left upper lobe and measuring 6 x 4 cm with some central necrosis, high likelihood for malignancy and needs further workup. 2 Chronic obstructive pulmonary disease 3 Chronic anemia with hemoglobin of 8.8 and possible of upper GI bleed. EGD was completed and patient also had colonoscopy. There was mild gastritis, esophagitis, diverticulosis, internal hemorrhoids 4 Leukocytosis/thrombocytosis with elevated platelet count 5 Chronic tobacco dependence Hyperlipidemia 7 Hypertension Plan: The patient was seen and evaluated by Dr. Gomez She is cleared for discharge from the pulmonary standpoint She'll need outpatient workup regarding the mass Will need to be done by interventional radiology with CT guided FNA If no answer, then would recommend bronchoscopy with biopsy This was discussed in detail with the patient who verbalizes understanding and is agreeable to the plan
[2020-11-22] MEDS: SODIUM CHLORIDE 0.9% 1,000 ML IV SCH (13:20)
--- NOTE | 2020-11-22 14:53 | PN ---
PROGRESS NOTE DATE OF SERVICE: 11/22/2020 REASON FOR FOLLOWUP: Abnormal CT with a question of necrotic tumor versus pneumonia. INTERVAL HISTORY: The patient is currently afebrile. The patient is breathing comfortably on room air. The patient denies any chest pain or shortness of breath. Minimal cough. No nausea, no vomiting. No abdominal pain or diarrhea. Overall feeling better and wants to go home. PHYSICAL EXAMINATION: Blood pressure 127/72 with a pulse of 88, temperature 98.1. She is 95% on room air. General description is a middle-aged female up in the bed in no distress. Respiratory system: Unlabored breathing, decreased breath sounds in the base, with no wheeze. Heart S1, S2. Regular rate and rhythm. Abdomen soft, no tenderness. LABS: Hemoglobin is 9.1, white count 13.4, BUN of 5, creatinine 0.5. Blood culture negative. DIAGNOSTIC IMPRESSION AND PLAN: Patient admitted to the hospital with elevated white count, noticed to have a right upper lobe cavitary tumor versus pneumonia. Clinically not behaving as an abscess though she did have white count that has shown a downward trend with the Levaquin and Flagyl which was given because of her PENICILLIN allergy. As the patient insists on going home and the CT-guided aspirate will be done as an outpatient per Pulmonary, we will switch antibiotic therapy to Levaquin and Flagyl for 10 days and close outpatient followup. MMODL / HERMELINDON: [id number] /
[2020-11-22 14:59] VITALS: BP 105/71; PULSE 77; TEMP 97.9
--- NOTE | 2020-12-10 00:20 | P.DS ---
Providers Date of admission: 11/19/20 16:24 Expected date of discharge: 11/22/20 Attending physician: Thor Chiu Consults: 11/19/20 15:11 Consult Physician Urgent Consulting Provider: Danielle Phillips Consult Reason/Comments: gi hemorrhage Do you want consulting provider notified?: Yes 11/19/20 23:12 Consult Physician Routine Consulting Provider: Stacie Gomez Consult Reason/Comments: lung abscess vs tumor Do you want consulting provider notified?: Yes, Notify in am 11/19/20 23:14 Consult Physician Routine Consulting Provider: Soledad Rea Consult Reason/Comments: Lung abscess Do you want consulting provider notified?: Yes, Notify in am Primary care physician: Julius Pandey Hospital Course: Discharge diagnosis Left upper lobe masslike infiltrate with possible lung abscess versus necrotic tumor.High suspicious for malignancy. Sepsis secondary to above Acute blood loss anemia. Likely due to GI bleed with dark stools. Iron deficiency anemia History of hemorrhoids Daily alcohol use 1-2 beers. Ongoing nicotine addiction Hypertension Hyperlipidemia DVT prophylaxis with SCDs due to GI bleed. Hospital course Patient is a 55-year-old female with a known history of hypertension, hyperlipidemia, chronic back pain, glaucoma and currently everyday smoker and alcohol use 1-2 beers on daily basis was sent to ER from Dr. Zafar office due to concern for GI bleed and elevated WBC count. Patient states that she did have dark-colored stool about a month ago followed by episodes of bright red blood per rectum. Patient does have history of hemorrhoids and had colonoscopy several years ago. Denies any dark-colored stool, hematemesis during the last few days. Otherwise patient does drink on a daily basis. Patient was sent to ER for evaluation. Denies any dysuria or hematuria. Laboratory data showed WBC 19.5 hemoglobin 9.1 and platelets 932 T-max was 100.3. Currently oxygenating at 99% on room air. Neutrophils 15.3 and monocytes 1.8 Liver enzymes are not elevated Sodium 133 potassium 4.3 chloride 96 and FOBT positive. Coronavirus PCR not detected Chest x-ray showed new suprahilar masslike opacity suspicious for focal infiltrate and less likely alveolar hemorrhage given patient's history. Progressive study advised rule out underlying nodule. EKG showed normal sinus rhythm CT of the abdomen pelvis and chest was done showed masslike infiltrate in the anterior left upper lobe adjacent to the chest wall. I would consider possibilities of lung abscess and necrotic tumor. Follow-up recommended. There is some colonic diverticulosis without diverticulitis. Cholelithiasis. 11/20/2020 Patient is currently resting in the bed comfortably. Denies any further episodes of dark-colored stool. No bowel event today. Patient is being c ontinued on Protonix 40 mg twice daily. GI is planning for EGD tomorrow. Otherwise patient is being continued antibiotics in the form of Levaquin and Flagyl. ID and pulmonary has seen the patient. Pulmonary points fine-needle aspiration due to high suspicion for malignancy. Laboratory data showed WBC went up to 19.8, hemoglobin 8.8 and platelets 831 Sodium 134 potassium 4.7 BUN 16 creatinine 0.5 Iron level 7 and TIBC 299 ferritin 40.29% desaturation 2.34 11/21/2020 Patient is currently sitting in a chair comfortably. No complaints of chest pain or shortness breath. Status post EGD and colonoscopy showed small hiatal hernia, reflux esophagitis and mild gastritis also noted to have left-sided diverticulosis and grade 2 hemorrhoids. Patient is being continued on IV antibiotics in the form of Levaquin and Flagyl. Still having significant leukocytosis with WBC count 15.8 and hemoglobin dropped down to 8.1 today. Patient is also iron deficient and was started on oral iron supplementation. Monitor H&H and advance diet as tolerated. Pulmonary recommends fine-needle aspiration biopsy of the left upper lobe tumor which can be done as an outpatient. Anticipate discharge next 24 hours with improvement in leukocytosis and hemoglobin level. Final antibiotic recommendations as per ID. Patient has been afebrile. No nausea vomiting or abdominal pain or diarrhea. Denied any further dark-colored stools. 11/22/2020 Patient is awake alert and oriented x3. No complaints of chest pain. Shortness of breath is much improved. Patient was recommended to get IR guided biopsy of the lung mass but patient would like to follow-up as an outpatient. Otherwise patient has been afebrile. Recommend to continue with oral antibiotics in the form of Levaquin and Flagyl. ID and pulmonary is on board. Blood cultures have been negative. Patient is saturating well on room air. Patient was recommended to follow-up with pulmonary in the clinic to arrange for IR guided biopsy. Patient would like to be discharged home today. Cleared from pulmonary and ID standpoint. PHYSICAL EXAMINATION: Patient is lying in the bed comfortably, no acute distress, awake alert and o riented.. HEENT: Normocephalic. Neck is supple. Pupils reactive. Nostrils clear. Oral cavity is moist. Ears reveal no drainage. Neck reveals no JVD, carotid bruits, or thyromegaly. CHEST EXAMINATION: Trachea is central. Symmetrical expansion. Lung urban clear to auscultation and percussion. CARDIAC: Normal S1, S2 with no gallops. No murmurs ABDOMEN: Soft. Bowel sounds normal. No organomegaly. No abdominal bruits. Extremities: reveal no edema. No clubbing or cyanosis Neurologically awake, alert, oriented x3 with well-coordinated movements. No focal deficits noted Skin: No rash or skin lesions. Psychiatric: Coperative. Nonsuicidal Musculoskeletal: No joint swelling or deformity. Normal range of motion. Vital Signs Temp 98.1 F 11/22/20 07:00 Pulse 88 11/22/20 08:00 Resp 18 11/22/20 08:00 BP 127/72 11/22/20 07:00 Pulse Ox 95 11/22/20 07:00 Intake & Output 11/21/20 11/22/20 11/22/20 18:59 06:59 18:59 Intake Total 740 2150 540 Balance 740 2150 540 Intake: IV 200 Intake, IV Titration 1200 Amount Sodium Chloride 0.9% 1, 1200 000 ml @ 100 mls/hr IV . Q10H [facility] Rx#:[id number] Oral 540 950 540 Other: Voiding Method Toilet Toilet # Voids 3 2 Time taken greater than 35 minutes in patient care out of which more than 50% was spent on counseling and coordination of care. Patient Condition at Discharge: Fair Plan - Discharge Summary Discharge Rx Participant: No New Discharge Prescriptions: New metroNIDAZOLE [Flagyl] 500 mg PO TID #30 tab Levofloxacin [Levaquin] 750 mg PO DAILY 10 Days #10 tab Pantoprazole Sodium [Protonix] 40 mg PO AC-BRKFST #30 tablet. Thiamine [Vitamin B-1] 100 mg PO DAILY #30 tab Ferrous Sulfate [Iron (65 MG Elemental)] 325 mg PO DAILY #30 tab Continue cycloSPORINE [Restasis] 1 drop RIGHT EYE HS Brimonidine Tartrate [Lumify] 1 drop RIGHT EYE DAILY Prednisolone Acetate/Pf [Prednisolone Acet 1% Eye Drop] 1 drop RIGHT EYE DAILY Cyclobenzaprine [Flexeril] 10 mg PO DAILY PRN PRN Reason: Spasms Carboxymethylcellulose Sodium [Refresh Tears] 1 drop RIGHT EYE DAILY PRN PRN Reason: Dry Eye(S) Sodium Chloride 5% Ophth Oint [Zen 128] 1 applic RIGHT EYE DAILY Cetirizine HCl [Zyrtec] 10 mg PO DAILY Losartan Potassium 100 mg PO DAILY HYDROcodone/APAP 5-325MG [[place] 5-325] 1 tab PO DAILY amLODIPine [Norvasc] 5 mg PO DAILY DULoxetine HCL [Cymbalta] 60 mg PO DAILY Atorvastatin [Lipitor] 10 mg PO HS Atenolol [Tenormin] 50 mg PO DAILY Discontinued Meloxicam [Mobic] 15 mg PO DAILY Discharge Medication List Atenolol [Tenormin] 50 mg PO DAILY 11/19/20 [History] Atorvastatin [Lipitor] 10 mg PO HS 11/19/20 [History] Brimonidine Tartrate [Lumify] 1 drop RIGHT EYE DAILY 11/19/20 [History] Carboxymethylcellulose Sodium [Refresh Tears] 1 drop RIGHT EYE DAILY PRN 11/19/20 [History] Cetirizine HCl [Zyrtec] 10 mg PO DAILY 11/19/20 [History] Cyclobenzaprine [Flexeril] 10 mg PO DAILY PRN 11/19/20 [History] DULoxetine HCL [Cymbalta] 60 mg PO DAILY 11/19/20 [History] HYDROcodone/APAP 5-325MG [Ed[place] 5-325] 1 tab PO DAILY 11/19/20 [History] Losartan Potassium 100 mg PO DAILY 11/19/20 [History] Prednisolone Acetate/Pf [Prednisolone Acet 1% Eye Drop] 1 drop RIGHT EYE DAILY 11/19/20 [History] Sodium Chloride 5% Ophth Oint [Zen 128] 1 applic RIGHT EYE DAILY 11/19/20 [History] amLODIPine [Norvasc] 5 mg PO DAILY 11/19/20 [History] cycloSPORINE [Restasis] 1 drop RIGHT EYE HS 11/19/20 [History] Ferrous Sulfate [Iron (65 MG Elemental)] 325 mg PO DAILY #30 tab 11/22/20 [Rx] Levofloxacin [Levaquin] 750 mg PO DAILY 10 Days #10 tab 11/22/20 [Rx] Pantoprazole Sodium [Protonix] 40 mg PO AC-BRKFST #30 tablet. 11/22/20 [Rx] Thiamine [Vitamin B-1] 100 mg PO DAILY #30 tab 11/22/20 [Rx] metroNIDAZOLE [Flagyl] 500 mg PO TID #30 tab 11/22/20 [Rx] Follow up Appointment(s)/Referral(s): Julius Pandey DO [Primary Care Provider] - 1-2 days Stacie Gomez MD [STAFF PHYSICIAN] - 3 Days Patient Instructions/Handouts: Gastrointestinal Bleeding (GEN) Discharge Disposition: HOME SELF-CARE
== END 2020-11-22 15:16 | disposition home or self-care (01) ==
LOC: EC 13:12 → 6NMEDSUR 16:24
PROVIDERS: ADMIT Internal Medicine; ATTEND Internal Medicine
DX: R91.8 Other nonspecific abnormal finding of lung field (principal); A41.9 Sepsis, unspecified organism; D62 Acute posthemorrhagic anemia; D50.9 Iron deficiency anemia, unspecified; I10 Essential (primary) hypertension; E78.5 Hyperlipidemia, unspecified; F17.200 Nicotine dependence, unspecified, uncomplicated; K57.30 Diverticulosis of large intestine without perforation or abscess without bleeding; K80.20 Calculus of gallbladder without cholecystitis without obstruction; K29.50 Unspecified chronic gastritis without bleeding; K21.00 Gastro-esophageal reflux disease with esophagitis, without bleeding; K29.70 Gastritis, unspecified, without bleeding; K44.9 Diaphragmatic hernia without obstruction or gangrene; R94.8 Abnormal results of function studies of other organs and systems; R93.89 Abnormal findings on diagnostic imaging of other specified body structures; K64.1 Second degree hemorrhoids; M79.18 Myalgia, other site; D72.829 Elevated white blood cell count, unspecified; D47.3 Essential (hemorrhagic) thrombocythemia; F17.210 Nicotine dependence, cigarettes, uncomplicated; M54.2 Cervicalgia; K92.1 Melena; J44.9 Chronic obstructive pulmonary disease, unspecified; G89.29 Other chronic pain; M54.9 Dorsalgia, unspecified; H40.9 Unspecified glaucoma; Z20.822 Contact with and (suspected) exposure to COVID-19; Z90.710 Acquired absence of both cervix and uterus; Z79.899 Other long term (current) drug therapy; Z79.891 Long term (current) use of opiate analgesic; Z79.1 Long term (current) use of non-steroidal anti-inflammatories (NSAID); Z88.0 Allergy status to penicillin; Z88.2 Allergy status to sulfonamides; Z88.1 Allergy status to other antibiotic agents
CPT/HCPCS: 96376; 96361 ×2; 96365; 96366 ×2; 96367; 96375; 99285; 36415; 93005; 88305; 80053; 80048 ×3; 82607; 82728; 82746; 83540; 83550; 83605; 84484; 85025 ×4; 85610; 85730; 82272; 81001; 87040; 87086; 87636; 71045; 71260; 74177; 45378; 43239; G0378 ×4; S4990 ×4; J1956 ×3; J2704; C9113 ×4; Q9967

== ENCOUNTER → 2021-10-28 | Outpatient (CLI) | payer OTHER ==
--- NOTE | 2021-10-28 11:32 | MM ---
Reason for exam: screening (asymptomatic). Last mammogram was performed less than 1 month ago. History: Patient is postmenopausal and is nulliparous. Excisional biopsy of the left breast, October 15, 2007. Benign US left CoreBiopsy of the left breast, January 11, 2006. Benign excisional biopsy of the left breast, December 03, 1997. Benign core biopsy of the left breast, November 12, 1997. Benign stereotactic core biopsy of the left breast, November 12, 1997. Benign excisional biopsy of the right breast. Took hormonal contraceptives for 5 years. Physical Findings: A clinical breast exam by your physician is recommended on an annual basis and results should be correlated with mammographic findings. MG 3D Work Up W/Cad LT LM and XCCL view(s) were taken of the left breast. Prior study comparison: October 18, 2021, bilateral MG screening mammo w CAD. October 16, 2020, bilateral MG 3d screening mammo w/cad. The breast tissue is heterogeneously dense. This may lower the sensitivity of mammography. 8mm oval circumscribed nodule, suspected low axillary tail node previously not pulled into the field of view. Results were given to the patient verbally at the time of the exam. ASSESSMENT: Incomplete: need additional imaging evaluation, BI-RAD 0 RECOMMENDATION: Ultrasound of the left breast.
--- NOTE | 2021-10-28 11:34 | USB ---
Reason for exam: additional evaluation requested from abnormal screening. History: Patient is postmenopausal and is nulliparous. Excisional biopsy of the left breast, October 15, 2007. Benign US left CoreBiopsy of the left breast, January 11, 2006. Benign excisional biopsy of the left breast, December 03, 1997. Benign core biopsy of the left breast, November 12, 1997. Benign stereotactic core biopsy of the left breast, November 12, 1997. Benign excisional biopsy of the right breast. Took hormonal contraceptives for 5 years. Physical Findings: A clinical breast exam by your physician is recommended on an annual basis and results should be correlated with mammographic findings. US Breast Workup Limited LT Technologist: Esme Yousif Left limited breast ultrasound including focal area of concern, retroareolar and axilla demonstrates a 0.5 x 0.5 x 0.3cm benign lesion at 3 o'clock, 3cm from nipple, likely tiny cyst cluster and a 0.8 x 0.5 x 0.4cm lymph node at 3 o'clock, cortex 1.5mm, likely mammographic correlate. 6 month follow up mammogram recommended. Results were given to the patient verbally at the time of the exam. ASSESSMENT: Probably benign, BI-RAD 3 RECOMMENDATION: Follow-up diagnostic mammogram of the left breast in 6 months.
== END | disposition home or self-care (01) ==
LOC: RADMAMWWP 10:07
PROVIDERS: ATTEND Family Medicine
DX: R92.8 Other abnormal and inconclusive findings on diagnostic imaging of breast (principal)
CPT/HCPCS: 77061; 77065

== ENCOUNTER → 2022-05-10 | Outpatient (CLI) | payer OTHER ==
--- NOTE | 2022-05-10 11:31 | MM ---
Reason for Exam: Follow-up at short interval from prior study. Last screening mammogram was performed 6 month(s) ago. Patient History: Menarche at age 11. Patient has no children. Hysterectomy at age 25. Postmenopausal. Patient used Hormonal Contraceptives for 5 years. 10/15/2007, Excisional Biopsy on the Left side. Benign Excisional Biopsy on the right side. 01/11/2006, Benign Core Biopsy on the left side. 12/03/1997, Benign Excisional Biopsy on the left side. 11/12/1997, Benign Core Biopsy on the left side. 11/12/1997, Benign Stereotactic Core Biopsy on the left side. Risk Values: Sariah 5 year model risk: 2.4%. NCI Lifetime model risk: 13.9%. Prior Study Comparison: 10/16/2020 Bilateral Screening Mammogram, [facility]. 10/18/2021 Bilateral Screening Mammogram, [facility]. 10/28/2021 Left Diagnostic Mammogram, [facility]. Tissue Density: Left: The breast tissue is heterogeneously dense. This may lower the sensitivity of mammography. Findings: Analyzed By CAD. Stable 8 mm oval circumscribed nodule in the left breast, posterior depth. This correlated with a benign lymph node on ultrasound. No new worrisome cluster of microcalcifications. Overall Assessment: Benign, BI-RAD 2 Management: Screening Mammogram of both breasts in 6 months. A clinical breast exam by your physician is recommended on an annual basis and results should be correlated with mammographic findings. This exam should not preclude additional follow-up of suspicious palpable abnormalities. Results were given to the patient verbally at the time of exam. Electronically signed and approved by: Justin Hanna D.O.
== END | disposition home or self-care (01) ==
LOC: RADMAMWWP 10:58
PROVIDERS: ATTEND Family Medicine
DX: R92.8 Other abnormal and inconclusive findings on diagnostic imaging of breast (principal)
CPT/HCPCS: 77061; 77065

== ENCOUNTER → 2022-10-31 | Outpatient (CLI) | payer OTHER ==
--- NOTE | 2022-11-01 10:26 | MM ---
Reason for Exam: Screening (asymptomatic). Last screening mammogram was performed 12 month(s) ago. Patient History: Menarche at age 11. Patient has no children. Hysterectomy at age 25. Postmenopausal. Patient used Hormonal Contraceptives for 5 years. 10/15/2007, Excisional Biopsy on the Left side. Benign Excisional Biopsy on the right side. 01/11/2006, Benign Core Biopsy on the left side. 12/03/1997, Benign Excisional Biopsy on the left side. 11/12/1997, Benign Core Biopsy on the left side. 11/12/1997, Benign Stereotactic Core Biopsy on the left side. Risk Values: Sariah 5 year model risk: 2.4%. NCI Lifetime model risk: 13.9%. Prior Study Comparison: 10/18/2021 Bilateral Screening Mammogram, [facility]. 10/28/2021 Left Diagnostic Mammogram, [facility]. 05/10/2022 Left MG 3D diag mammo w/cad LT, [facility]. Tissue Density: The breast tissue is heterogeneously dense. This may lower the sensitivity of mammography. Findings: Analyzed By CAD. Pattern appears symmetrical and stable. No significant interval changes are evident. No suspicious groups of microcalcifications, spiculated or lobular masses, architectural distortion or other secondary signs of malignancy are mammographically apparent. Overall Assessment: Benign, BI-RAD 2 Management: Screening Mammogram of both breasts in 1 year. A negative mammogram report should not preclude additional follow up of suspicious palpable abnormalities. Patient should continue monthly self breast exam. A clinical breast exam by your physician is recommended on an annual basis and results should be correlated with mammographic findings. Electronically signed and approved by: Jas Li D.O. Radiologis
== END | disposition home or self-care (01) ==
LOC: RADMAMWWP 13:17
PROVIDERS: ATTEND Family Medicine
DX: Z12.31 Encounter for screening mammogram for malignant neoplasm of breast (principal); Z78.0 Asymptomatic menopausal state
CPT/HCPCS: 77067

== ENCOUNTER → 2023-11-06 | Outpatient (CLI) | payer BC ==
--- NOTE | 2023-11-08 13:40 | MM ---
Reason for Exam: Screening (asymptomatic). Last screening mammogram was performed 12 month(s) ago. Patient History: Menarche at age 11. Patient has no children. Hysterectomy at age 25. Postmenopausal. Patient used Hormonal Contraceptives for 5 years. 10/15/2007, Excisional Biopsy on the Left side. Benign Excisional Biopsy on the right side. 01/11/2006, Benign Core Biopsy on the left side. 12/03/1997, Benign Excisional Biopsy on the left side. 11/12/1997, Benign Core Biopsy on the left side. 11/12/1997, Benign Stereotactic Core Biopsy on the left side. Risk Values: Sariah 5 year model risk: 2.4%. NCI Lifetime model risk: 13.6%. Prior Study Comparison: 10/28/2021 Left Diagnostic Mammogram, [facility]. 05/10/2022 Left MG 3D diag mammo w/cad LT, [facility]. 10/31/2022 Bilateral MG screening mammo w CAD, [facility]. Tissue Density: The breasts are heterogeneously dense, which may obscure small masses. Findings: Analyzed By CAD. There is no suspicious group of microcalcifications or new suspicious mass in either breast. Overall Assessment: Negative, BI-RAD 1 Management: Screening Mammogram of both breasts in 1 year. . Patient should continue monthly self-breast exams. A clinical breast exam by your physician is recommended on an annual basis. This exam should not preclude additional follow-up of suspicious palpable abnormalities. Note on Sariah scores and lifetime risk: 1. A Sariah score greater than 3% is considered moderate risk. If this is the case, consider specialist referral to assess eligibility for a risk reducing agent. 2. If overall lifetime risk for the development of breast cancer is 20% or higher, the patient may qualify for future screening with alternating mammogram and breast MRI. Electronically signed and approved by: Domingo Arango M.D. Radiologis
== END | disposition home or self-care (01) ==
LOC: RADMAMWWP 12:56
PROVIDERS: ATTEND Family Medicine
DX: Z12.31 Encounter for screening mammogram for malignant neoplasm of breast (principal); Z78.0 Asymptomatic menopausal state
CPT/HCPCS: 77063; 77067

== ENCOUNTER → 2024-11-29 | Outpatient (CLI) | payer BC ==
--- NOTE | 2024-11-29 14:16 | MM ---
Reason for Exam: Screening (asymptomatic). Last mammogram was performed 1 year(s) and 1 month(s) ago. Patient History: Menarche at age 11. Patient has no children. Hysterectomy at age 25. Postmenopausal. Patient used Hormonal Contraceptives for 5 years. Benign Excisional Biopsy on the right side. 01/11/2006, Benign Core Biopsy on the left side. 12/03/1997, Benign Excisional Biopsy on the left side. 11/12/1997, Benign Core Biopsy on the left side. 11/12/1997, Benign Stereotactic Core Biopsy on the left side. Risk Values: Sariah 5 year model risk: 2.5%. NCI Lifetime model risk: 13.3%. Prior Study Comparison: 05/10/2022 Left MG 3D diag mammo w/cad LT, [facility]. 10/31/2022 Bilateral MG screening mammo w CAD, [facility]. 11/06/2023 Bilateral MG 3D screening mammo w/cad, [facility]. Tissue Density: There are scattered areas of fibroglandular density. Findings: Analyzed By CAD. Stable distortion in the left breast. Benign-appearing bilateral axillary lymph nodes are redemonstrated. There is no suspicious group of microcalcifications or new suspicious mass in either breast. Overall Assessment: Negative, BI-RAD 1 Management: Screening Mammogram of both breasts in 1 year. . Patient should continue monthly self-breast exams. A clinical breast exam by your physician is recommended on an annual basis. This exam should not preclude additional follow-up of suspicious palpable abnormalities. Note on Sariah scores and lifetime risk: 1. A Sariah score greater than 3% is considered moderate risk. If this is the case, consider specialist referral to assess eligibility for a risk reducing agent. 2. If overall lifetime risk for the development of breast cancer is 20% or higher, the patient may qualify for future screening with alternating mammogram and breast MRI. [facility], , 11/29/2024 2:13 PM. Electronically signed and approved by: Isac Funes M.D.
== END ==
LOC: RADMAMWWP 13:40
PROVIDERS: ATTEND Family Medicine
DX: Z12.31 Encounter for screening mammogram for malignant neoplasm of breast (principal); R92.323 Mammographic fibroglandular density, bilateral breasts; Z78.0 Asymptomatic menopausal state; Z92.0 Personal history of contraception
CPT/HCPCS: 77063; 77067

== ENCOUNTER 2024-12-06 21:06 | Emergency (ER) | payer BC ==
--- NOTE | 2024-12-06 21:36 | XR ---
EXAMINATION TYPE: XR humerus RT DATE OF EXAM: 12/06/2024 CLINICAL INDICATION: Female, 59 years old with history of pain, injury TECHNIQUE: Two views of the right humerus are obtained. COMPARISON: None. FINDINGS: There is an acute comminuted displaced fracture through the distal diaphysis into the dist al metaphysis of the right humerus. Elbow joint space is maintained. Overlying soft tissues are unre markable. IMPRESSION: As above. [facility], , 12/06/2024 9:34 PM
[2024-12-06] MEDS: HYDROmorphone 1 MG/ML 1 ML SYRINGE IM STA ×2 (22:04→23:23)
[2024-12-06] MEDS: diazePAM 2 MG TAB PO STA (22:04)
[2024-12-07] MEDS: HYDROmorphone 1 MG/ML 1 ML SYRINGE IVP STA (00:37)
[2024-12-07] MEDS: HYDROmorphone 1 MG/ML 1 ML SYRINGE IM STA (00:40)
--- NOTE | 2024-12-07 01:42 | ED ---
Trauma HPI - General Chief Complaint: Extremity Injury, Upper Stated Complaint: R Arm Injury-Fall Time Seen by Provider: 12/06/24 21:15 Source: patient Mode of arrival: wheelchair Limitations: no limitations - History of Present Illness Initial Comments: 59-year-old female presents emergency department after a fall. States she fell off her porch and landed on an outstretched right arm. Patient is right arm dominant. She denies hitting her head. No loss of consciousness. Patient does not take any blood thinners. Does have chronic back pain and takes [place] at home. Patient has obvious deformity to the proximal humerus. No numbness, tingling or weakness in the hand. No other alleviating, precipitating or modifying factors - Related Data Home Medications Medication Instructions Recorded Confirmed Atorvastatin [Lipitor] 10 mg PO HS 11/19/20 11/19/20 Brimonidine Tartrate [Lumify] 1 drop RIGHT EYE DAILY 11/19/20 11/19/20 Carboxymethylcellulose Sodium 1 drop RIGHT EYE DAILY PRN 11/19/20 11/19/20 [Refresh Tears] Cetirizine HCl [Zyrtec] 10 mg PO DAILY 11/19/20 11/19/20 Cyclobenzaprine [Flexeril] 10 mg PO DAILY PRN 11/19/20 11/19/20 DULoxetine HCL [Cymbalta] 60 mg PO DAILY 11/19/20 11/19/20 HYDROcodone/APAP 5-325MG [[place] 1 tab PO DAILY 11/19/20 11/19/20 5-325] Losartan Potassium 100 mg PO DAILY 11/19/20 11/19/20 Prednisolone Acetate/Pf 1 drop RIGHT EYE DAILY 11/19/20 11/19/20 [Prednisolone Acet 1% Eye Drop] Sodium Chloride 5% Ophth Oint 1 applic RIGHT EYE DAILY 11/19/20 11/19/20 [Zen 128] amLODIPine [Norvasc] 5 mg PO DAILY 11/19/20 11/19/20 atenoloL [Tenormin] 50 mg PO DAILY 11/19/20 11/19/20 cycloSPORINE [Restasis] 1 drop RIGHT EYE HS 11/19/20 11/19/20 Previous Rx's Medication Instructions Recorded Ferrous Sulfate [Iron (65 MG 325 mg PO DAILY #30 tab 11/22/20 Elemental)] Pantoprazole Sodium [Protonix] 40 mg PO LONGBRKFST #30 tablet. 11/22/20 Thiamine [Vitamin B-1] 100 mg PO DAILY #30 tab 11/22/20 levoFLOXacin [Levaquin] 750 mg PO DAILY 10 Days #10 tab 11/22/20 metroNIDAZOLE [Flagyl] 500 mg PO TID #30 tab 11/22/20 oxyCODONE-APAP 10-325MG [Percocet 1 tab PO Q4HR PRN 3 Days #18 tab 12/07/24 10-325 mg] Allergies Allergy/AdvReac Type Severity Reaction Status Date / Time Penicillins Allergy Rash/Hives Verified 12/06/24 21:09 Sulfa (Sulfonamide Allergy Unknown Verified 12/06/24 21:09 Antibiotics) Childhood Review of Systems ROS Statement: Those systems with pertinent positive or pertinent negative responses have been documented in the HPI. ROS Other: All systems not noted in ROS Statement are negative. Past Medical History Past Medical History: Hyperlipidemia, Hypertension Additional Past Medical History / Comment(s): chronic back pain, glaucoma History of Any Multi-Drug Resistant Organisms: None Reported Past Surgical History: Hysterectomy Additional Past Surgical History / Comment(s): eye stent Past Psychological History: No Psychological Hx Reported Smoking Status: Current every day smoker Past Alcohol Use History: Occasional Past Drug Use History: None Reported General Exam Limitations: no limitations General appearance: alert, in no apparent distress Head exam: Present: atraumatic, normocephalic, normal inspection Eye exam: Present: normal appearance, PERRL, EOMI. Absent: scleral icterus, conjunctival injection, periorbital swelling ENT exam: Present: normal exam, mucous membranes moist Neck exam: Present: normal inspection. Absent: tenderness, meningismus, lymphadenopathy Respiratory exam: Present: normal lung sounds bilaterally. Absent: respiratory distress, wheezes, rales, rhonchi, stridor Cardiovascular Exam: Present: regular rate, normal rhythm, normal heart sounds. Absent: systolic murmur, diastolic murmur, rubs, gallop, clicks GI/Abdominal exam: Present: soft, normal bowel sounds. Absent: distended, tenderness, guarding, rebound, rigid Extremities exam: Present: full ROM, tenderness (To the mid to distal humerus), normal capillary refill, other (2+ radius and ulnar pulses. Intact sensation in the median, radial and ulnar distributions. Normal extension and flexion at the wrist). Absent: pedal edema, joint swelling, calf tenderness Back exam: Present: normal inspection Neurological exam: Present: alert, oriented X3, CN II-XII intact Psychiatric exam: Present: normal affect, normal mood Skin exam: Present: warm, dry, intact, normal color. Absent: rash Course Vital Signs 12/06/24 12/07/24 21:07 01:50 Temperature 98 F 97.6 F Pulse Rate 83 80 Respiratory 18 16 Rate Blood Pressure 116/84 124/74 O2 Sat by Pulse 97 95 Oximetry Procedures - Orthopedic Splinting/Casting Injury #1 Side: right Upper Extremity Injury Location: long arm Upper Extremity Immobilizer: posterior splint, Roshan wrap, synthetic pre-padded splint Medical Decision Making - Medical Decision Making Was pt. sent in by a medical professional or institution (, PA, VETERINARY DENTIST, urgent care, hospital, or senior living...) When possible be specific @ -No Did you speak to anyone other than the patient for history (EMS, parent, family, police, friend...)? What history was obtained from this source @ -No Did you review nursing and triage notes (agree or disagree)? Why? @ -I reviewed and agree with nursing and triage notes Were old charts reviewed (outside hosp., previous admission, EMS record, old EKG, old radiological studies, urgent care reports/EKG's, senior living records)? Report findings @ -No old charts were reviewed Differential Diagnosis (chest pain, altered mental status, abdominal pain women, abdominal pain men, vaginal bleeding, weakness, fever, dyspnea, syncope, headache, dizziness, GI bleed, back pain, seizure, CVA, palpatations, mental health, musculoskeletal)? @ -Differential Musculoskeletal Muscular strain, contusion, ligament sprain, fracture, arthritis, septic arthritis, bursitis, cellulitis, muscle spasm, nerve compression, DVT, arterial occlusion, herpes zoster, electrolyte abnormality, tumor.... This is not meant to be in all inclusive list EKG interpreted by me (3pts min.). @ -Not done X-rays interpreted by me (1pt min.). @ -X-ray demonstrates acute comminuted displaced fracture through the distal diaphysis into the distal metaphysis of the right humerus CT interpreted by me (1pt min.). @ -CT performed which demonstrates acute displaced segmental spiral fracture of the distal humerus. Segmental fragment measures 9 cm. Fracture terminates in the lateral supracondylar region of the distal humerus. U/S interpreted by me (1pt. min.). @ -None done What testing was considered but not performed or refused? (CT, X-rays, U/S, labs)? Why? @ -None What meds were considered but not given or refused? Why? @ -None Did you discuss the management of the patient with other professionals (professionals i.e. DrRosaline, PA, VETERINARY DENTIST, lab, RT, psych nurse, oncology social work, abnormal psychology teacher, teacher, disability insurance hearing officer, trimming caser)? Give summary @ -Spoke with Dr. Fink. Patient would prefer to go home. He requested CT before the patient is discharged for outpatient management Was smoking cessation discussed for >3mins.? @ -No Was critical care preformed (if so, how long)? @ -No Were there social determinants of health that impacted care today? How? (Homelessness, low income, unemployed, alcoholism, drug addiction, transportation, low edu. Level, literacy, decrease access to med. care, [facility], rehab)? @ -No Was there de-escalation of care discussed even if they declined (Discuss DNR or withdrawal of care, Hospice)? DNR status @ -No What co-morbidities impacted this encounter? (DM, HTN, Smoking, COPD, CAD, Cancer, CVA, ARF, Chemo, Hep., AIDS, mental health diagnosis, sleep apnea, morbid obesity)? @ -Chronic pain Was patient admitted / discharged? Hospital course, mention meds given and route, prescriptions, significant lab abnormalities, going to OR and other pertinent info. @ -Upon arrival patient seen and evaluated in room 33. Thorough history and physical exam was performed. Patient given Dilaudid. X-ray performed which demonstrates distal humerus fracture. I discussed the case with Dr. Fink. He does offer admission for pain control or if the patient prefers to go home, recommend CT before discharge. Patient will prefer to go home. She was given another dose of pain medications and placed in a posterior splint. CT was performed. Patient be discharged home at this time. Instructed to make an appoint with Dr. Fink and return for any new or worsening symptoms. Pulses intact after splint placement. Undiagnosed new problem with uncertain prognosis? @ -No Drug Therapy requiring intensive monitoring for toxicity (Heparin, Nitro, Insulin, Cardizem)? @ -No Were any procedures done? @ -No Diagnosis/symptom? @ -Acute fall, acute distal humerus fracture Acute, or Chronic, or Acute on Chronic? @ -Acute Uncomplicated (without systemic symptoms) or Complicated (systemic symptoms)? @ -Uncomplicated Side effects of treatment? @ -No Exacerbation, Progression, or Severe Exacerbation? @ -No Poses a threat to life or bodily function? How? (Chest pain, [place], [place], pneumonia, PE, COPD, DKA, ARF, appy, cholecystitis, CVA, Diverticulitis, Homicidal, Suicidal, threat to staff... and all critical care pts) @ -No Disposition Clinical Impression: Humerus fracture, Fall Disposition: HOME SELF-CARE Condition: Stable Instructions (If sedation given, give patient instructions): Arm Fracture in Adults (ED) Additional Instructions: Wear the sling. Take the pain medications as they are instructed. Do not get the splint wet. Call to make an appointment with Dr. Fink. You will likely need surgery. Rest, ice and elevated the extremity. Prescriptions: oxyCODONE-APAP 10-325MG [Percocet 10-325 mg] 1 tab PO Q4HR PRN 3 Days #18 tab PRN Reason: Pain Is patient prescribed a controlled substance at d/c from ED?: Yes When asked, does pt state using other controlled substances?: No If prescribed controlled substance>3 days was MAPS reviewed?: Prescribed <3 Days Referrals: Julius Pandey DO [Primary Care Provider] - 1-2 days Donal Fink MD [STAFF PHYSICIAN] - 1-2 days Time of Disposition: 01:42
[2024-12-07 01:53] VITALS: BP 124/74; PULSE 80; RESP 16; TEMP 97.6
--- NOTE | 2024-12-07 02:18 | CT ---
EXAM: CT Right Upper Extremity Without Intravenous Contrast CLINICAL HISTORY: ITS.REASON CT Reason: mid humerus to elbow TECHNIQUE: Axial computed tomography images of the right upper extremity without intravenous contrast. CTDI is 19 mGy and DLP is 724 mGy-cm. This CT exam was performed using one or more of the following dose reduction techniques: automated exposure control, adjustment of the mA and/or kV according to patient size, and/or use of iterative reconstruction technique. COMPARISON: Right humerus radiographs 12/06/2024 FINDINGS: Bones/joints: Acute displaced segmental spiral fracture of the distal humerus shaft. Segmental fragment measures 9 cm in length. Fracture terminates in the lateral supracondylar region of the distal humerus. No dislocation. Soft tissues: Enlarged biceps brachii muscle suggesting muscle contusion/intramuscular hematoma. Subcutaneous hematoma along the medial aspect of the distal upper arm. IMPRESSION: 1. Acute displaced segmental spiral fracture of the distal humerus shaft. Segmental fragment measures 9 cm in length. Fracture terminates in the lateral supracondylar region of the distal humerus. 2. Enlarged biceps brachii muscle suggesting muscle contusion/intramuscular hematoma.
== END 2024-12-07 01:50 | disposition home or self-care (01) ==
LOC: EC 21:06
DX: S42.411A Displaced simple supracondylar fracture without intercondylar fracture of right humerus, initial encounter for closed fracture (principal); F17.200 Nicotine dependence, unspecified, uncomplicated; W18.30XA Fall on same level, unspecified, initial encounter
CPT/HCPCS: 73060; 73200; 99284; 96372 ×3; 29105; J1171 ×2